=== PATIENT | male | born 1980 | race Caucasian/White ===

== ENCOUNTER 2024-03-03 10:29 | Inpatient (IN) ==
--- NOTE | 2024-03-03 10:38 | Emergency Department Note ---
History of Present Illness General Chief complaint: Abdominal Pain Stated complaint: ABD CT, REF BY DOC Time Seen by Provider: 03/03/24 10:37 History of Present Illness Maximum Pain Intensity: 8 This is a 43-year-old male that presents to the emergency department via private vehicle with complaints of "left lower quadrant abdominal pain, acute diverticulitis". The patient notes that yesterday he began with abdominal pain and blood in the stool. He has a history of ulcerative colitis as well as diverticulitis. He notes a "cramping" like sensation in the left lower quadrant. Current pain 04/15. He denies any nausea, vomiting. He does note he had a visit earlier today with his PCP where a CT scan was performed and he was diagnosed with acute sigmoid diverticulitis. Noting his severity of pain and comorbidities, he was referred here. Patient denies any known drug allergies. He is not currently on antibiotics. He has had about 4 flares of acute diverticulitis over the past year and a half per patient. Home Medications Medication Instructions Recorded Confirmed Type mesalamine 1.2 gram tablet,delayed 2.4 g PO HS 08/04/18 03/03/24 History release albuterol sulfate 90 mcg/actuation 2 puff inhalation QID PRN 10/04/18 03/03/24 History aerosol inhaler (ProAir HFA) Shortness Of Breath ascorbic acid (vitamin C) 500 mg 500 mg PO DAILY Cold Symptoms 10/04/18 03/03/24 History tablet (Vitamin C) dicyclomine 20 mg tablet 20 mg PO TID PRN Abdominal Pain 10/04/18 03/03/24 History mesalamine 1,000 mg rectal 1 g MD HS PRN Pain 10/04/18 03/03/24 History suppository omeprazole 20 mg tablet,delayed 20 mg PO DAILY Acid Reflux 10/04/18 03/03/24 History release ciprofloxacin HCl 500 mg tablet 0 mg PO BID 03/03/24 03/03/24 History metronidazole 500 mg tablet 0 mg PO TID 03/03/24 03/03/24 History Allergies Allergy/AdvReac Type Severity Reaction Status Date / Time No Known Allergies Verified 03/03/24 12:15 Past Med/Surg History Problem List (Updated 03/03/24 @ 16:56 by Julito Méndez PA-C) Abdominal pain, acute, left lower quadrant (Acute) Diverticulitis (Acute) Encounter for pre-operative examination Ulcerative colitis (Acute) Medical History (Updated 03/03/24 @ 16:56 by Julito Méndez PA-C) GERD (gastroesophageal reflux disease) Asthma allergy induced, inhaler prn Surgical History History of arthroscopy of left knee Hx of vasectomy History of colonoscopy History of tooth extraction Family History Other No family history of adverse response to anesthesia Social History Smoking Status: Never smoker Tobacco Type: Cigars Second Hand Exposure: Yes (parents smoked); Do You Dip or Chew Tobacco: No; Hx Alcohol Use: Yes Alcohol type: beer Hx Substance Use: No Preferred Language: Turkmen Communication Ability: Effective Installation Service Representative Required: No Beliefs That Will Affect Care: None Current Living Situation: Spouse Current Living Situation Comment: Lives with and 2 kids Feels Safe at Home: Yes Assistive Devices: None Review of Systems A total of 10 systems reviewed and were otherwise negative Physical Exam Vital Signs Vital Signs - 24 hr 03/03/24 10:35 03/03/24 13:45 03/03/24 13:46 Temperature 36.8 C Temperature Source Oral Pulse Rate 88 76 80 Respiratory Rate 20 18 Respiratory Effort / Characteristics Non-Labored Spontaneous Respiratory Depth Normal Blood Pressure 149/103 H 134/92 Blood Pressure Mean 118 106 Pulse Oximetry 98 97 Oxygen Delivery Method Room Air Sepsis Recent Fever Within 48 Hours No Sepsis New/Unexplained Change in Mental Status N/A Sepsis Action Taken by Nursing No Action Required VITAL SIGNS - Vital signs and nursing notes were reviewed. Stable and afebrile. GENERAL -43-year-old male appearing his stated age who is in no acute distress. Communicates well with provider and answers questions appropriately. SKIN - Without rashes. No meningeal or petechial rash. HEAD - NC/AT. EYES - Sclera anicteric. MOUTH/OROPHARYNX - Without perioral cyanosis. NECK - Neck with FROM. No nuchal rigidity. LUNGS - Chest wall symmetric without accessory muscle use, intercostals retractions, or central cyanosis. Normal vesicular breath sounds CTA B/L. No wheezes, rales, or rhonchi appreciated. CARDIAC - RRR ABDOMEN - Abdominal contour normal without pulsations or visible masses. BS normoactive all four quadrants. Left lower quadrant abdominal tenderness to palpation. EXTREMITIES - +5/5 strength noted in UE/LE bilaterally. PSYCH -alert, oriented and pleasant on exam. Pt is very pleasant and interacts well with examiner. Course Administered Medications Sodium Chloride (Nss) 1,000 mls @ 125 mls/hr IV .Q8H COLLEEN Stop: 03/03/24 23:14 Last Admin: 03/03/24 16:25 Dose: 125 mls/hr Documented By: TIFFANIE Piperacillin Sod/Tazobactam (Sod 4.5 gm/ Dextrose) 100 mls @ 25 mls/hr IV Q8H [facility]; Protocol Stop: 03/13/24 16:14 Last Admin: 03/03/24 16:25 Dose: 25 mls/hr Documented By: TIFFANIE Discontinued Medications Sodium Chloride (Nss) 1,000 mls @ 999 mls/hr IV .Q1H1M COLLEEN Stop: 03/03/24 12:15 Last Infusion: 03/03/24 12:24 Dose: Infused Documented By: Admin: 03/03/24 11:07 Dose: 999 mls/hr Documented By: ANASTASIA Piperacillin Sod/Tazobactam Sod (Zosyn) 4.5 gm in 100 mls @ 200 mls/hr IV NOW ONE Stop: 03/03/24 11:51 Last Infusion: 03/03/24 12:24 Dose: Infused Documented By: Admin: 03/03/24 11:29 Dose: 200 mls/hr Documented By: ANASTASIA Morphine Sulfate (Morphine Sulfate 4 Mg/Ml 1 Ml Carp\\Vial) 4 mg IV NOW STA Stop: 03/03/24 11:02 Last Admin: 03/03/24 11:07 Dose: 4 mg Documented By: ANASTASIA Morphine Sulfate (Morphine Sulfate 4 Mg/Ml 1 Ml Carp\\Vial) 4 mg IV NOW STA Stop: 03/03/24 13:46 Last Admin: 03/03/24 13:51 Dose: 4 mg Documented By: ANASTASIA Ondansetron HCl (Ondansetron Inj 2 Mg/Ml 2 Ml Vial) 4 mg IV NOW STA Stop: 03/03/24 11:02 Last Admin: 03/03/24 11:07 Dose: 4 mg Documented By: ANASTASIA Medical Decision Making Laboratory Data 03/03/24 10:47 03/03/24 10:47 Lab Results 03/03/24 03/03/24 Range/Units 10:47 11:09 WBC 9.82 (4.8-10.8) K/ul RBC 5.35 (4.70-6.10) M/uL Hgb 16.1 (14.0-18.0) g/dl Hct 44.8 (42.0-52.0) % MCV 83.7 (80.0-100.0) fL MCH 30.1 (25.0-34.0) pg MCHC 35.9 (32.0-36.0) g/dL RDW Std Deviation 35.5 L (36.4-46.3) fL RDW Coeff of Yusuf 11.8 (11.5-14.5) % Plt Count 196 (130-400) K/uL MPV 10.2 (9.4-12.4) fL Immature Gran % (Auto) 0.2 % Neut % (Auto) 84.4 % Lymph % (Auto) 8.1 % Whitfield % (Auto) 6.8 % Eos % (Auto) 0.2 % Baso % (Auto) 0.3 % Neut # (Auto) 8.28 H (1.40-6.50) K/uL Lymph # (Auto) 0.80 L (1.20-3.40) K/uL Whitfield # (Auto) 0.67 H (0.11-0.59) K/uL Eos # (Auto) 0.02 (0.00-0.50) K/uL Baso # (Auto) 0.03 (0.00-0.20) K/uL Immature Gran # (Auto) 0.02 (0.01-0.20) K/uL Sodium 135 L (136-145) mmol/L Potassium 4.2 (3.5-5.1) mmol/L Chloride 101 (98-107) mmol/L Carbon Dioxide 26 (21-32) mmol/L Anion Gap 8 (3-11) BUN 14 (6-23) mg/dl Creatinine 1.31 (0.6-1.4) mg/dl Est Cr Clr Drug Dosing 87.7 ml/min Est GFR ( Amer) 76.7 ml/min Est GFR (Non-Af Amer) 66.2 ml/min BUN/Creatinine Ratio 10.7 (10-20) Glucose 119 H (70-99(Fasting)) mg/dl Calcium 9.8 (8.6-10.3) mg/dl Total Bilirubin 1.7 H (0.2-1.0) mg/dl AST 33 (13-39) U/L ALT 50 (7-52) U/L Alkaline Phosphatase 64 (34-104) U/L Total Protein 8.3 (6.0-8.3) gm/dl Albumin 4.8 (3.4-5.0) gm/dl Globulin 3.5 (2.5-4.0) gm/dl Albumin/Globulin Ratio 1.4 (0.9-2) Urine Color Yellow Urine Appearance Clear (Clear) Urine pH 5.5 (4.5-7.5) Ur Specific [place] > 1.045 H (1.000-1.030) Urine Protein Negative (Negative) Urine Glucose (UA) Negative (Negative) Urine Ketones Negative (Negative) Urine Blood Negative (Negative) Urine Nitrite Negative (Negative) Urine Bilirubin Negative (Negative) Urine Urobilinogen Negative (Negative) Ur Leukocyte Esterase Negative (Negative) MDM Narrative Patient was seen and evaluated as above in room A04. Review was performed of triage nursing notes and vital signs. I did review the outpatient record to include CT scan and PCP visit from today. After obtaining a thorough history and physical examination the above work up was performed. Patient presents to us today for evaluation of left lower quadrant abdominal pain with recent diagnosis of diverticulitis. Options of care were discussed with the patient. IV access was established. Labs were drawn. No leukocytosis or concerning anemia. Mild hyponatremia 135. Mild hyperglycemia 119. T. bili 1.7. The outpatient CT does show acute sigmoid diverticulitis per radiologist. There specifically is comment that there is "no ascites, abscess, or pneumoperitoneum" per radiologist. IV analgesia, IV fluids ordered. IV antibiotics also ordered. Stool studies pending. With the patient's comorbidity of ulcerative colitis with blood in the stool in the setting of acute diverticulitis with recent treatment for diverticulitis being about 3 months ago inpatient management considered. I reviewed this with the patient and through shared decision making we will proceed with inpatient management. Case discussed with hospitalist service. Please refer to further documentation regarding his stay. GCS: 15 In the evaluation and treatment of this patient the following differential diagnoses were entertained: Diverticulitis, perforation, GI bleed, ulcerative colitis, C. difficile colitis, gastroenteritis, among others. Impression & Plan Diverticulitis, Ulcerative colitis, Abdominal pain, acute, left lower quadrant Discharge Plan Visit Data Chief Complaint: Abdominal Pain Stated Complaint: ABD CT, REF BY DOC ED Provider: Jie Weinstein ED Midlevel Provider: Julito Méndez Discharge Problem: Diverticulitis, Ulcerative colitis, Abdominal pain, acute, left lower quadrant Patient Disposition: Admitted As Inpatient Condition: Good Discharge Instructions Interventions: ED Discharge Assessment Last Done: 03/03/24 14:39
[2024-03-03] MEDS: MoRPHine SULFATE 4 MG/ML 1 ML CARP\\VIAL IV STA ×2 (11:07→13:51)
[2024-03-03] MEDS: SODIUM CHLORIDE 0.9% 1,000 ML IV SCH ×2 (11:07→16:25)
[2024-03-03] MEDS: ONDANSETRON INJ 2 MG/ML 2 ML VIAL IV STA (11:07)
[2024-03-03 11:21] LABS: Basophils # (auto) 0.03 K/uL (0.00-0.20); Basophils % (auto) 0.3 %; Eosinophils # (auto) 0.02 K/uL (0.00-0.50); Eosinophils % (auto) 0.2 %; Hematocrit (blood only) 44.8 % (42.0-52.0); Hemoglobin 16.1 g/dl (14.0-18.0); Immature Granulocytes # (auto) 0.02 K/uL (0.01-0.20); Immature Granulocytes % (auto) 0.2 %; Lymphocytes % (auto) 8.1 %; Mean Corpuscular Hemoglobin 30.1 pg (25.0-34.0); Mean Corpuscular Hgb Conc 35.9 g/dL (32.0-36.0); Mean Corpuscular Volume 83.7 fL (80.0-100.0); Mean Platelet Volume 10.2 fL (9.4-12.4); Monocytes # (auto) 0.67 K/uL (0.11-0.59); Monocytes % (auto) 6.8 %; Neutrophils # (auto) 8.28 K/uL (1.40-6.50); Neutrophils % (auto) 84.4 %; Platelet Count 196 K/uL (130-400); RDW Coefficient of Variation 11.8 % (11.5-14.5); RDW Standard Deviation 35.5 fL (36.4-46.3); Red Blood Count 5.35 M/uL (4.70-6.10); White Blood Count 9.82 K/ul (4.8-10.8)
[2024-03-03] MEDS: PIPERACILLIN/TAZOBACTAM 4.5 GM/100 ML BAG IV ONE (11:29)
[2024-03-03 11:39] LABS: Albumin Globulin Ratio 1.4 (0.9-2); Albumin Level 4.8 gm/dl (3.4-5.0); BUN Creatinine Ratio 10.7 (10-20); Bilirubin,Total 1.7 mg/dl (0.2-1.0); Calcium 9.8 mg/dl (8.6-10.3); Creatinine Clr Calc Pharmacy 87.7 ml/min; Est GFR (African American) 76.7 ml/min; Est GFR (Non-African American) 66.2 ml/min; Globulin 3.5 gm/dl (2.5-4.0); Potassium 4.2 mmol/L (3.5-5.1); Total Protein 8.3 gm/dl (6.0-8.3)
[2024-03-03 11:51] LABS: Appearance Urine Clear (Clear); Bilirubin Urine Negative (Negative); Blood Urine Negative (Negative); Color Urine Yellow; Glucose Urine UA Negative (Negative); Ketones Urine Negative (Negative); Leukocyte Esterase Urine Negative (Negative); Nitrite Urine Negative (Negative); Protein Urine Negative (Negative); Specific Gravity Urine > 1.045 (1.000-1.030); Urobilinogen Urine Negative (Negative); pH Urine 5.5 (4.5-7.5)
--- NOTE | 2024-03-03 13:43 | History & Physical Report ---
Date of Service March 03, 2024 Assessment & Plan (1) Diverticulitis: (2) Abdominal pain, acute, left lower quadrant: Plan: Patient is 43 year old male with PMH ulcerative colitis, diverticulosis and diverticulitis, asthma, GERD c/o left lower quadrant pain x 1 day. Patient states yesterday started with cramping and sharp left lower quadrant pain that is nonradiating, one episode red bloody stool in past 24 hours. 03/03/[address] abdomen pelvis with IV and oral contrast with impression of "Acute sigmoid diverticulitis, no intra-abdominal or intrapelvic lymphadenopathy, no ascites, abscess or pneumoperitoneum noted". In ER afebrile, vitals stable. No leukocytosis In ER given 1L NSS, Zosyn, Zofran, morphine Stool culture and c-diff pending Clear liquid diet Continue Zosyn Tylenol, Toradol, Morphine prn pain IVF CBC, BMP in am (3) Ulcerative colitis: Plan: Continue mesalamine Does not appear to be UC flare at this time. Monitor closely. If recurrent hematochezia or worsening consider GI consult (4) Asthma: Plan: No signs exacerbation Continue prn albuterol (5) GERD (gastroesophageal reflux disease): Plan: Continue PPI DVT Prophylaxis Ambulate admit med/surg Full Code as per discussion with pt Follows with Luis for routine care Pt was seen and care coordinated with Dr Jenkins. See addendum I spent a total of 75 minutes reviewing notes, outpatient records, labs, medication, coordinating, documenting and providing care for this patient excluding time spent in the performance of separately billed services. History of Present Illness Chief Complaint: Abdominal pain Primary Care Provider: Benton Rivas MD Patient is 43 year old male with PMH ulcerative colitis, diverticulosis and diverticulitis, asthma, GERD c/o left lower quadrant pain x 1 day. Patient states yesterday started with cramping and sharp left lower quadrant pain that is nonradiating. He reports stools have been loose. He reports has had approximately 10 BMs however have been very small in volume. He reports a lot of flatus. He states 1 time he noted red bloody stool. Had BM in ER today and didn't notice hematochezia. Denies nausea. He reports 3 episodes diverticulitis in the past year treated with oral Cipro and Flagyl that has not required hospitalization. He states he has Cipro and Flagyl to start at any sign of abdominal pain. He started taking Cipro and Flagyl yesterday. Today seen at PCPs office and PCPs note reviewed. Today, 03/03/[address] abdomen pelvis with IV and oral contrast with impression of "Acute sigmoid diverticulitis, no intra-abdominal or intrapelvic lymphadenopathy, no ascites, abscess or pneumoperitoneum noted". He was referred to ER today for further evaluation. Previously seen by [facility] surgery, Dr Cancino on 10/06/2023 for history recurrent episodes of uncomplicated diverticulitis. Note reviewed and had recommended if recurrent symptoms recommend CT abd/pelvis to try to differentiate between diverticulitis and UC flare. Follows with [facility] and is on mesalamine for ulcerative colitis. Denies fever/chills, diaphoresis, vomiting, WYATT, dizziness, CP, SOB, palpitations, cough, rhinorrhea, extremity weakness, extremity edema, rashes, urinary symptoms. Allergies Allergy/AdvReac Type Severity Reaction Status Date / Time No Known Allergies Verified 03/03/24 12:15 Home Medications Medication Instructions Recorded Confirmed Type mesalamine 1.2 gram tablet,delayed 2.4 g PO HS 08/04/18 03/03/24 History release albuterol sulfate 90 mcg/actuation 2 puff inhalation QID PRN 10/04/18 03/03/24 History aerosol inhaler (ProAir HFA) Shortness Of Breath ascorbic acid (vitamin C) 500 mg 500 mg PO DAILY Cold Symptoms 10/04/18 03/03/24 History tablet (Vitamin C) dicyclomine 20 mg tablet 20 mg PO TID PRN Abdominal Pain 10/04/18 03/03/24 History mesalamine 1,000 mg rectal 1 g FL HS PRN Pain 10/04/18 03/03/24 History suppository omeprazole 20 mg tablet,delayed 20 mg PO DAILY Acid Reflux 10/04/18 03/03/24 History release ciprofloxacin HCl 500 mg tablet 0 mg PO BID 03/03/24 03/03/24 History metronidazole 500 mg tablet 0 mg PO TID 03/03/24 03/03/24 History Past Med/Surg History Problem List (Updated 03/03/24 @ 18:48 by Emily Yoder PA-C) GERD (gastroesophageal reflux disease) Asthma allergy induced, inhaler prn Abdominal pain, acute, left lower quadrant (Acute) Diverticulitis (Acute) Encounter for pre-operative examination Ulcerative colitis (Acute) Surgical History History of arthroscopy of left knee Hx of vasectomy History of colonoscopy History of tooth extraction Family History Other No family history of adverse response to anesthesia Social History Smoking Status: Never smoker Tobacco Type: Cigars Second Hand Exposure: Yes (parents smoked); Do You Dip or Chew Tobacco: No; Hx Alcohol Use: Yes Alcohol type: beer Hx Substance Use: No Preferred Language: Welsh Communication Ability: Effective Hardware Installer Required: No Beliefs That Will Affect Care: None Current Living Situation: Spouse Current Living Situation Comment: Lives with and 2 kids Feels Safe at Home: Yes Assistive Devices: None Review of Systems Review of Systems: All systems reviewed & are unremarkable except as noted in HPI & below Physical Exam Physical Exam: General: no acute distress, WDWN Head: normocephalic, atraumatic Eyes: conjunctiva non-injected, anicteric ENT: normal inspection external ears, nose, mucous membranes moist Neck: supple, trachea midline Lungs: clear, no respiratory distress, no wheezing/rhonchi/rales CV: RRR, no murmur, no pretibial edema Abd: normal BS, soft, +tender to palpation LLQ without rebound Ext: no cyanosis, no calf tenderness Neuro: A&O x 3, no focal deficits noted, normal affect Skin: warm, dry Results & Data Results & Data Vital Signs (Past 12 Hours) Vital Signs Temp Pulse Resp BP Pulse Ox O2 Del Method 03/03/24 10:35 36.8 C 88 20 149/103 H 98 Room Air Laboratory Results Short CBC 03/03/24 Range/Units 10:47 WBC 9.82 (4.8-10.8) K/ul Hgb 16.1 (14.0-18.0) g/dl Hct 44.8 (42.0-52.0) % Plt Count 196 (130-400) K/uL BMP 03/03/24 10:47 Sodium 135 L Potassium 4.2 Chloride 101 Carbon Dioxide 26 BUN 14 Creatinine 1.31 Glucose 119 H Calcium 9.8 Liver Function 03/03/24 Range/Units 10:47 Total Bilirubin 1.7 H (0.2-1.0) mg/dl AST 33 (13-39) U/L ALT 50 (7-52) U/L Alkaline Phosphatase 64 (34-104) U/L Albumin 4.8 (3.4-5.0) gm/dl Urine 03/03/24 Range/Units 11:09 Urine Color Yellow Urine Appearance Clear (Clear) Urine pH 5.5 (4.5-7.5) Ur Specific [place] > 1.045 H (1.000-1.030) Urine Protein Negative (Negative) Urine Glucose (UA) Negative (Negative) Supervising Physician Co-Signing Physician Notes Patient was seen and examined independently at bedside. Chart reviewed. Case discussed with Emily MALHOTRA and agree with the documentation above. In summary, this is a 43 year old male with history of recurrent diverticulitis (4 episodes), ulcerative colitis who is being admitted for uncomplicated acute s igmoid diverticulitis. Family at bedside, pain is controlled. On exam, lying comfortably in bed, not in distress, AAO, chest clear, heart sounds normal, neurologically intact, calm, cooperative, no edema. Abdomen- soft, LLQ tender, not distended, BS +. OP CT A/P reviewed. Vitals stable, labs stable. Will continue zosyn, bowel rest, ivf, advance diet as tolerated to low fiber diet. Needs OP colonoscopy in 6 weeks. Rest as per the note above.
[2024-03-03] MEDS ORDERED: ONDANSETRON INJ 2 MG/ML 2 ML VIAL IV PRN (15:05)
[2024-03-03] MEDS ORDERED: ALBUTEROL HFA 8 GM INHALER INH PRN (15:10)
[2024-03-03] MEDS: PIPERACILLIN/TAZOBACTAM 4.5 GM in DEXTROSE 5% MINI-B 100 ML IV SCH (16:25)
[2024-03-03] MEDS: MoRPHine SULFATE 4 MG/ML 1 ML CARP\\VIAL IV PRN (18:04)
[2024-03-03] MEDS: ACETAMINOPHEN 325 MG TAB PO PRN (18:05)
--- OUTSIDE RECORDS SUMMARY | 2024-03-03 18:24 | External Medical Summary | Summary of Care ---
Author Name Unknown Organization [facility] Address [address] [place] [address] Phone [phone] Care Team Providers Care Programs Director Name Role Phone Benton Rivas MD Primary Care Provider [phone] Reason for Visit * Reason Comments Outpatient Testing Encounter Details Date Type Department Care Team (Late st Contact Info) Description 10/22/2023 11:40 AM EST Laboratory Laboratory, [facility] [address] [place] [address] [facility] [address] [place] [address] Arrived Allergies No known active allergiesdocumented as of this encounter (statuses as of 10/22/2023) Medications Medication Sig Dispensed Refills Start Date End Date Status albuterol (PROAIR HFA) 108 (90 BASE) MCG/ACT inhalerIndications :Cough variant asthma Inhale 2 Puffs by mouth 4 times a day. 1 Inhaler 1 10/22/2017 Active Additional Information Patient taking differently:2 Puff Inhalation QID(AM/NOON/PM/HS),prn, Reported on 09/21/2022 Mesalamine 1.2 GM Oral Tablet Delayed Release (Lialda) Take 2 Tablets by mouth in the morning. 180 Tablet 3 10/22/2023 Active Omeprazole 20 MG Oral Capsule Delayed Release (PriLOSEC) Take 1 capsule by mouth twice daily 1 hour prior to morning and evening meals. 180 Capsule 3 10/22/2023 Active documented as of this encounter (statuses as of 10/22/2023) Active Problems Problem Noted Date Diagnosed Date Diverticulosis of large intestine without hemorr tyler 10/06/2023 Eosinophilic esophagitis 10/06/2023 Overweight (BMI 25.0-29.9) 10/06/2023 Ulcerative proctitis documented as of this encounter (statuses as of 10/22/2023) Resolved Problems Problem Noted Date Diagnosed Date Resolved Date NO KNOWN PROBLEMS 02/20/2010 10/06/2023 documented as of this encounter (statuses as of 10/22/2023) Immunizations Name Administration Dates Next Due Seasonal Influenza, PF, 6 M & above, IM , (FluLaval or Fluzone) 06/23/2019,10/22/2017 Seasonal Influenza, Quadrivalent, No Preserve, I M 06/21/2015 documented as of this encounter Social History Tobacco Use Types Packs/Day Years Used Date Smoking Tobacco: Never Smokeless Tobacco: Never Alcohol Use Standard Drinks/Week Comments Yes 0 (1 standard drink = 0.6 oz pur e alcohol) occasional PHQ-2 Answer Date Recorded PHQ-2 Score 0 09/09/2018 Sex and Gender Information Value Date Recorded Sex Assigned at Not on file Gender Identity Not on file Sexual Orientation Not on file Job Start Date Occupation Industry Not on file Not on file Not on file documented as of this encounter Plan of Treatment Upcoming Encounters Date Type Department Care Team (Late st Contact Info) Description 10/27/2024 10:20 AM EST Office Visit Family [facility] [address] [place] [id number] Benton Rivas MD [address] [place] [id number] Scheduled Procedures Name Priority Associated Diagnoses Date/Ti me COLONOSCOPY FLEXIBLE PROXIMA L DIAGNOSTIC Recall Chronic ulcerative proctitis (HCC) Health Maintenance Due Date Last Done Comments Lipid Panel 1980 HIV Screening 1995 Hepatitis C Screening 1998 DTaP,Tdap,and Td Vaccines (1 - Tdap) 1999 Hepatitis B (1 of 3 - 19+ 3-dose series) 1999 Depression Screening 09/09/2019 09/09/2018 COVID-19 Vaccine ( - 2022-24 season) 2023 Influenza Vaccine (FLU shot) (#1) 2023 06/23/2019, 10/22/2017, 06/21/2015 Diabetes Screening 01/23/2025 01/23/2022, 0 05/09/2021, 08/04/2018, Additional history exists COLONOSCOPY-EVERY 3 YRS AGES 18-100 09/21/2025 09/21/2022, 09/21/2022, 10/05/2018, Additional history exists GARDASIL-HPV IMMUNIZATION SERIES Aged Out No longer eligible based on patient's age to complete this topic MENINGOCOCCAL (MENACTRA/MENVEO) Aged Out No longer eligible based on patient's age to complete this topic Pneumococcal Vaccine: Pediatrics (0 to 5 Years) and At-Risk Patients (6 to 64 Years) Aged Out No longer eligible based on patient's age to complete this topic documented as of this encounter Medical Devices Not on filedocumented as of this encounter Care Teams Programs Director Relationship Specialty Start Date End Date Benton Rivas MD [address] [place] [address] PCP - General Family Medicine 08/16/23 documented as of this encounter
--- OUTSIDE RECORDS SUMMARY | 2024-03-03 18:24 | External Medical Summary | Summary of Care ---
Author Name Unknown Organization [facility] Address [address] [facility] [address] Phone [phone] Care Team Providers Care Gas Turbine Powerplant Mechanic Name Role Phone Benton Rivas MD Primary Care Provider [phone] Reason for Visit * Reason Comments Follow Up Pt here for follow u p and to establish with new PCP Encounter Details Date Type Department Care Team (Late st Contact Info) Description 10/22/2023 10:40 AM EST Office Visit Family Practice [facility] [address] [facility] [place] [address] Benton Rivas MD [address] [facility] [place] [address] Routine general medical examination at a health care facility*; Ulcerative proctitis without complication (HCC); Eosinophilic esophagitis; Diverticulosis of large intestine without hemorrhage; Overweight (BMI 25.0-29.9) Allergies No known active allergiesdocumented as of this encounter (statuses as of 10/23/2023) Medications Medication Sig Dispensed Refills Start Date End Date Status albuterol (PROAIR HFA) 108 (90 BASE) MCG/ACT inhalerIndicati ons:Cough variant asthma Inhale 2 Puffs by mouth 4 times a day. 1 Inhaler 1 8 Active Additional Information Patient taking differently:2 Puff Inhalation QID(AM/NOON/PM/HS),prn, Reported on 09/21/2022 Mesalamine 1.2 GM Oral Tablet Delayed Release (Lialda) Take 2 Tablets by mouth in the morning. 180 Tablet 3 4 Active Omeprazole 20 MG Oral Capsule Delayed Release (PriLOSEC) Take 1 capsule by mouth twice daily 1 hour prior to morning and evening meals. 180 Capsule 3 4 Active Ciprofloxacin HCl 500 MG Oral Tablet (Cipro) Take 1 Tablet by mouth in the morning and 1 Tablet before bedtime. Do all this for 10 days. 20 Tablet 0 4 11/02/19 24 Active metroNIDAZOLE 500 MG Oral Tablet (Flagyl) Take 1 Tablet by mouth in the morning and 1 Tablet at noon and 1 Tablet before bedtime. Do all this for 10 days. until gone.. 30 Tablet 0 4 11/02/19 24 Active Vitamin B-12 1000 MCG Sublingual Tablet SublingualIndic ations:Vitamin B12 deficiency Place under the tongue 1 Tablet in the morning. 90 Tablet 3 2 10/22/19 24 Discontinued Omeprazole 20 MG Oral Capsule Delayed Release (PriLOSEC) Take 1 capsule by mouth twice daily 1 hour prior to morning and evening meals. 180 Capsule 3 3 10/22/19 24 Discontinued(Ref ill) Mesalamine 1.2 GM Oral Tablet Delayed Release (Lialda) Take 2 Tablets by mouth in the morning. 180 Tablet 3 3 10/22/19 24 Discontinued(Ref ill) metroNIDAZOLE 500 MG Oral Tablet (Flagyl) Take 1 Tablet by mouth in the morning and 1 Tablet at noon and 1 Tablet before bedtime. 21 Tablet 0 3 10/22/19 24 Discontinued Ciprofloxacin HCl 500 MG Oral Tablet (Cipro) Take 1 Tablet by mouth in the morning and 1 Tablet before bedtime. 14 Tablet 0 3 10/22/19 24 Discontinued documented as of this encounter (statuses as of 10/23/2023) Active Problems Problem Noted Date Diagnosed Date Diverticulosis of large intestine without hemorr tyler 10/06/2023 Eosinophilic esophagitis 10/06/2023 Overweight (BMI 25.0-29.9) 10/06/2023 Ulcerative proctitis documented as of this encounter (statuses as of 10/23/2023) Resolved Problems Problem Noted Date Diagnosed Date Resolved Date NO KNOWN PROBLEMS 02/20/2010 10/06/2023 documented as of this encounter (statuses as of 10/23/2023) Immunizations Name Administration Dates Next Due Seasonal [...] on file documented as of this encounter Last Filed Vital Signs Vital Sign Reading Time Taken Comments Blood Pressure 130/84 10/22/2023 10:55 AM EST Pulse 80 10/22/2023 10:55 AM EST Temperature 36.6 C (97.8 F) 10/22/2023 10:[address] Respiratory Rate 18 10/22/2023 10:55 AM EST Oxygen Saturation - - Inhaled Oxygen Concentration - - Weight 100.7 kg (222 lb) 10/22/2023 10:55 AM EST Height 185.4 cm (6' 1") 10/22/2023 10:55 AM EST Body Mass Index 29.29 10/22/2023 10:55 AM EST documented in this encounter Progress Notes * Benton Rivas MD - 10/23/2023 8:45 AM EST SUBJECTIVE: Titi Mata is a 43 year old male. Chief Complaint Patient presents with Follow Up Pt here for follow up and to establish with new PCP HPI: Will is a very pleasant 43 year old male here for a routine visit. He feels generally well. He follows with the specialists for his ulcerative proctitis and diverticulosis. No recent flares. Health maintenance reviewed. Patient Active Problem List Diagnosis Code Ulcerative proctitis (HCC) K51.20 Diverticulosis of large intestine without hemorrhage K57.30 Eosinophilic esophagitis K20.0 Overweight (BMI 25.0-29.9) E66.3 Current Outpatient Medications Medication Sig Dispense Refill albuterol (PROAIR HFA) 108 (90 BASE) MCG/ACT inhaler Inhale 2 Puffs by mouth 4 times a day. (Patient taking differently: Inhale 2 Puffs by mouth in the morning and 2 Puffs at noon and 2 Puffs in the evening and 2 Puffs before bedtime. prn.) 1 Inhaler 1 Mesalamine 1.2 GM Oral Tablet Delayed Release (Lialda) Take 2 Tablets by mouth in the morning. 180 Tablet 3 Omeprazole 20 MG Oral Capsule Delayed Release (PriLOSEC) Take 1 capsule by mouth twice daily 1 hourprior to morning and evening meals. 180 Capsule 3 Ciprofloxacin HCl 500 MG Oral Tablet (Cipro) Take 1 Tablet by mouth in the morning and 1 Tablet before bedtime. Do all this for 10 days. 20 Tablet 0 metroNIDAZOLE 500 MG Oral Tablet (Flagyl) Take 1 Tablet by mouth in the morning and 1 Tablet at noon and 1 Tablet before bedtime. Do all this for 10 days. until gone.. 30 Tablet 0 No current facility-administered medications for this visit. Allergy: Review of patient's allergies indicates: No Known Allergies OBJECTIVE: BP 130/84 | Pulse 80 | Temp 36.6 C (97.8 F) (Tympanic) | Resp 18 | Ht 1.854 m (6' 1") | Wt 100.7 kg (222 lb) | BMI 29.29 kg/m | BSA 2.28 m General: alert, healthy, and no distress Head: Normocephalic, No masses, lesions, tenderness or abnormalities Neck: supple, no adenopathy, no bruits, thyroid normal size, non-tender, without nodularity Lungs: chest symmetric with normal AP diameter, no chest deformities noted, no chest wall tenderness, lungs clear to auscultation Heart: regular rate & rhythm, no murmur, and no gallops Extremities: less than 2 second capillary refill, no joint deformities, effusion, or inflammation Skin: skin color, texture, turgor are normal, no rashes or significant lesions ASSESSMENT AND PLAN: (Z00.00) Routine general medical examination at a health care facility (primary encounter diagnosis) Plan: age appropriate anticipatory guidance given (K51.20) Ulcerative proctitis without complication (HCC) Plan: stable (K20.0) Eosinophilic esophagitis Plan: stable (K57.30) Diverticulosis of large intestine without hemorrhage Plan: quiescent (E66.3) Overweight (BMI 25.0-29.9) Plan: diet/exercise Follow up as needed. No other complaints were offered at this time. Benton Rivas MD documented in this encounter Nursing Notes * Grazyna Sultana LPN - 10/22/2023 10:55 AM EST The patient has been properly identified by confirmation of name and date of . Chief Complaint Patient presents with Follow Up Pt here for follow up and to establish with new PCP documented in this encounter Plan of Treatment Upcoming Encounters Date Type Department Care Team (Late st Contact Info) Description 10/27/2024 10:20 AM EST Office Visit [facility] [address] [facility] [place] [address] Benton Rivas MD [address] [place] [address] Scheduled Procedures Name Priority Associated Diagnoses Date/Ti me COLONOSCOPY FLEXIBLE PROXIMA L DIAGNOSTIC Recall Chronic ulcerative proctitis (HCC) Health Maintenance Due Date Last Done Comments HIV Screening 1995 Hepatitis C Screening 1998 DTaP,Tdap,and Td Vaccines (1 - Tdap) 1999 Hepatitis B (1 of 3 - 19+ 3-dose series) 1999 Depression Screening 09/09/2019 09/09/2018 COVID-19 Vaccine (1 - 2022-24 season) 2023 Influenza Vaccine (FLU shot) (#1) 2023 06/23/2019, 10/22/2017, 06/21/2015 COLONOSCOPY-EVERY 3 YRS AGES 18-100 09/21/2025 09/21/2022, 09/21/2022, 10/05/2018, Additional history exists Diabetes Screening 10/22/2026 10/22/2023, 0 01/23/2022, 05/09/2021, Additional history exists Lipid Panel 10/22/2028 10/22/2023 GARDASIL-HPV IMMUNIZATION SERIES Aged Out No longer [...] Not on filedocumented as of this encounter Visit Diagnoses Diagnosis Routine general medical examination at a health care facility- Primary Ulcerative proctitis without complication (HCC) Eosinophilic esophagitis Diverticulosis of large intestine without hemorrhage Overweight (BMI 25.0-29.9) Overweight documented in this encounter Care Teams Gas Turbine Powerplant Mechanic Relationship Specialty Start Date End Date Benton Rivas MD [address] [facility] [place] [address] PCP - General Family Medicine 08/16/23 documented as of this encounter
--- OUTSIDE RECORDS SUMMARY | 2024-03-03 18:24 | External Medical Summary ---
Author Name Unknown Address Unknown Organization K0G:[facility] [place] [address] Laboratory Report Ordering Provider Test Date Status GABRIEL ROSENBERG 10/22/2023 11:15:56 Final Observation Date Value Abnormality Reference (Units ) Status BUN 10/22/2023 11:15:56 19 6-20 (mg/dL) Final Creatinine 10/22/2023 11:15:56 1.2 0.6-1.2 (mg/dL) Final Glomerular filtration rate/1.73 sq M.predicted [Volume Rate/Area] in Serum, Plasma or Blood by Creatinine-based formula (CKD-EPI) 10/22/2023 11:15:56 81 >=60 (mL/min) Final eGFR is calculated based on the CKD-EPI 2020 equation SODIUM 10/22/2023 11:15:56 138 135-146 (m mol/L) Final Potassium 10/22/2023 11:15:56 4.7 3.5-5.1 (m mol/L) Final Cl 10/22/2023 11:15:56 101 98-107 (mm ol/L) Final CO2 10/22/2023 11:15:56 24 22-32 (mmo l/L) Final Anion gap 10/22/2023 11:15:56 13 7-15 (mmol /L) Final Glucose 10/22/2023 11:15:56 99 70-120 (mg /dL) Final Albumin 10/22/2023 11:15:56 4.9 3.8-5.0 (g /dL) Final AST (Aspartate aminotransferase) 10/22/2023 11:15:56 28 10-50 (U/L) Fin al Alk Phos 10/22/2023 11:15:56 63 35-130 (U/ L) Final Bilirubin, Total 10/22/2023 11:15:56 0.6 <=1 .2 (mg/dL) Final Calcium 10/22/2023 11:15:56 9.3 8.4-10.2 ( mg/dL) Final Protein 10/22/2023 11:15:56 7.3 6.0-8.3 (g /dL) Final ALT (Alanine aminotransferase) 10/22/2023 11:15:56 54 Above high normal 10-50 (U/L) Final Performing Location [facility] [place] [facility] [address]
--- OUTSIDE RECORDS SUMMARY | 2024-03-03 18:24 | External Medical Summary ---
Author Name Unknown Address Unknown Organization K01:[facility] - [address] [facility] [place] [address] Laboratory Report Ordering Provider Test Date Status GABRIEL ROSENBERG 10/22/2023 11:15:56 Final Observation Date Value Abnormality Reference (Units ) Status Triglyceride 10/22/2023 11:15:56 224 Above high normal <=174 (mg/dL) Final Triglyceride Reference Range s (mg/dL):
<150 Acceptable
150-174 Borderline high
175-499 High
>=500 Very high Cholesterol 10/22/2023 11:15:56 248 Above high normal <200 (mg/dL) Final Total Cholesterol Reference Ranges (mg/dL):
<200 Desirable
200-239 Borderline high
>=240 High HDL 10/22/2023 11:15:56 76 >39 (mg/dL ) Final HDL Cholesterol Reference Ra nges (mg/dL):
>=60 High (Desirable)
<50 Low (Undesirable) For Females
<40 Low (Undesirable) For Males NON-HDL CHOLESTEROL 10/22/2023 11:15:56 172 Above high normal <=159 (mg/dL) Final Non-HDL Cholesterol Referenc e Range (mg/dL):
<100 Target level for high risk ASCVD patient
<130 Optimal for general population
130-159 Near optimal for general population
160-189 Borderline High
190-219 High
>=220 Very High LDL, (calculated) 10/22/2023 11:15:56 127 <= 129 (mg/dL) Final LDL Cholesterol Reference Ra nges (mg/dL):
<70 Target level for high risk ASCVD patient
<100 Optimal for general population
100-129 Near optimal for general population
130-159 Borderline high
160-189 High
>=190 Very high Performing Location [facility] - [address] [facility] [address]
--- OUTSIDE RECORDS SUMMARY | 2024-03-03 18:24 | External Medical Summary | Summary of Care ---
Author Name Unknown Organization [facility] Address [address] [place] [facility] [place] [address] Phone [phone] Care Team Providers Care Leaf Sucker Operator Name Role Phone Benton Rivas MD Primary Care Provider [phone] Reason for Referral * Precert (Within 10 days (routine)) - Pending Review Specialty Diagnoses / Procedures Referred By Contac t Referred To Contact Radiology Diagnoses Diverticulitis of colon Procedures CT ABD/PELVIS W IV AND W ORAL CONTRAST Benton Rivas MD [address] [employer] [place] [address] Referral ID Status Reason Start Date Expiration Date V isits Requested Visits Authorized [id number] Pending Review 03/02/[phone] Encounter Details Date Type Department Care Team (Late st Contact Info) Description 03/02/2024 Telephone Family Practice [facility] [address] [place] [address] Benton Rivas MD [address] [place] [address] Allergies No known active allergiesdocumented as of this encounter (statuses as of 03/02/2024) Medications Medication Sig Dispensed Refills Start Date [...] as of this encounter (statuses as of 03/02/2024) Active Problems Problem Noted Date Diagnosed Date Diverticulosis of large intestine without hemorr tyler 10/06/2023 Eosinophilic esophagitis 10/06/2023 Overweight (BMI 25.0-29.9) 10/06/2023 Ulcerative proctitis documented as of this encounter (statuses as of 03/02/2024) Resolved Problems Problem Noted Date Diagnosed Date Resolved Date NO KNOWN PROBLEMS 02/20/2010 10/06/2023 documented as of this encounter (statuses as of 03/02/2024) Immunizations Name Administration Dates Next Due Seasonal [...] Answer Date Recorded PHQ-2 Score 0 09/09/2018 Utilities Answer Date Recorded Do you have trouble paying y our heating, water, or electric bill? (Adult - for ages 18 years and over) Not on file 02/22/2024 Is your family able to pay t he heat, water, or electric bill? (Household - for ages 0-17 years) Not on file 02/22/2024 Does your family have access to good internet? (Household - for ages 0-17 years) Not on file 02/22/2024 Social Connections Answer Date Recorded How often do you feel lonely or isolated from those around you? (Adult - for ages 18 years and over) Not on file 02/22/2024 Sex and Gender Information Value Date Recorded Sex Assigned at Not on file Gender Identity Not on file Sexual Orientation Not on file Job Start Date Occupation Industry Not on file Not on file Not on file documented as of this encounter Miscellaneous Notes * Telephone Encounter - Elise Bishop LPN - 03/02/2024 11:36 AM EDT Pt/ made aware * Telephone Encounter - Benton Rivas MD - 03/02/2024 11:32 AM EDT Ordered. * Telephone Encounter - Elise Bishop LPN - 03/02/2024 11:26 AM EDT Pt voices concerns for possible diverticulitis flare (Hx of UC as well)-- Sx began last night 03/02/24. Sx include abd cramps, loose stools, scant blood on paper with BM. Pt at work, unable to go to ER at this moment. Pt started cipro/flagyl today. Inquiring about CT order per Catalina Mata. documented in this encounter Plan of Treatment Upcoming Encounters Date Type Department Care Team (Late st Contact Info) Description 10/27/2024 10:20 AM EST Office Visit Family Practice [facility] [address] [place] [address] Benton Rivas MD [address] [place] [address] Scheduled Orders Name Type Priority Associated Diagnoses Orde r Schedule CT ABD/PELVIS W IV AND W ORAL CONTRAST Medical Imaging Routine Diverticulitis of colon Ordered: 03/02/2024 Scheduled Procedures Name Priority Associated Diagnoses Date/Ti [...] 2022-24 season) 2023 Influenza Vaccine (FLU shot) (Season Ended) 2024 06/23/2019, 10/22/2017, 06/21/2015 Colonoscopy 09/21/2025 09/21/2022, 09/06, 10/05/2018, Additional history exists Diabetes Screening 10/22/2026 [...] as of this encounter Visit Diagnoses Diagnosis Diverticulitis of colon- Primary Diverticulitis of colon (without mention of hemorrhage) documented in this encounter Care Teams Leaf Sucker Operator Relationship Specialty Start Date End Date Benton Rivas MD [address] [address] PCP - General Family Medicine 08/16/23 documented as of this encounter
--- OUTSIDE RECORDS SUMMARY | 2024-03-03 18:24 | External Medical Summary | Summary of Care ---
Author Name Unknown Organization [facility] Address [address] [facility] [place] [address] Phone [phone] Care Team Providers Care Photoengraving Finisher Name Role Phone Benton Rivas MD Primary Care Provider [phone] Reason for Referral * Precert (Within 10 days (routine)) - Pending Review Specialty Diagnoses / Procedures Referred By Contac t Referred To Contact Radiology Diagnoses Diverticulitis of colon Procedures CT ABD/PELVIS W IV AND W ORAL CONTRAST Benton Rivas MD [address] [place] [address] Referral ID Status Reason Start Date Expiration Date V isits Requested Visits Authorized [id number] Pending Review 03/02/[phone] Encounter Details Date Type Department Care Team (Late st Contact Info) Description 03/02/2024 Telephone Family Practice [facility] [address] [place] [address] Benton Rivas MD [address] [place] [address] Allergies No known active allergiesdocumented as of [...] 10:20 AM EST Office Visit Family Practice [facility] [address] [place] [address] Benton Rivas MD [address] [place] [address] Scheduled Orders Name Type Priority Associated Diagnoses [...] hemorrhage) documented in this encounter Care Teams Photoengraving Finisher Relationship Specialty Start Date End Date Benton Rivas MD [address] [place] [address] PCP - General Family Medicine 08/16/23 documented as of this encounter
--- OUTSIDE RECORDS SUMMARY | 2024-03-03 18:25 | External Medical Summary | Summary of Care ---
Author Name Unknown Organization [facility] Address [address] [place] [address] Phone [phone] Care Team Providers Care Account Adjuster Name Role Phone Benton Rivas MD Primary Care Provider [phone] Reason for Visit * Reason Comments Acute Knee pain Encounter Details Date Type Department Care Team (Late st Contact Info) Description 09/11/2023 10:00 AM EST Office Visit [facility] [address] [place] [address] Estiven Sarkar MD [address] [place] [address] Contusion of left thigh, subsequent encounter*; Contusion of left knee, subsequent encounter Allergies No known active allergiesdocumented as of this encounter (statuses as of 09/11/2023) Medications Medication Sig Dispensed Refills Start Date End Date Status albuterol (PROAIR HFA) 108 (90 BASE) MCG/ACT inhalerIndications :Cough variant asthma Inhale 2 Puffs by mouth 4 times a day. 1 Inhaler 1 10/22/2017 Active Additional Information Patient taking differently:2 Puff Inhalation QID(AM/NOON/PM/HS),prn, Reported on 09/21/2022 Vitamin B-12 1000 MCG Sublingual Tablet SublingualIndicati ons:Vitamin B12 deficiency Place under the tongue 1 Tablet in the morning. 90 Tablet 3 05/01/2022 Active Additional Information Patient not taking.Reported on 04/09/2023 Omeprazole 20 MG Oral Capsule Delayed Release (PriLOSEC) Take 1 capsule by mouth twice daily 1 hour prior to morning and evening meals. 180 Capsule 3 04/09/2023 Active Mesalamine 1.2 GM Oral Tablet Delayed Release (Lialda) Take 2 Tablets by mouth in the morning. 180 Tablet 3 04/09/2023 Active metroNIDAZOLE 500 MG Oral Tablet (Flagyl) Take 1 Tablet by mouth in the morning and 1 Tablet at noon and 1 Tablet before bedtime. 21 Tablet 0 08/16/2023 Active Additional Information Patient not taking.Reported on 09/11/2023 Ciprofloxacin HCl 500 MG Oral Tablet (Cipro) Take 1 Tablet by mouth in the morning and 1 Tablet before bedtime. 14 Tablet 0 08/16/2023 Active Additional Information Patient not taking.Reported on 09/11/2023 documented as of this encounter (statuses as of 09/11/2023) Active Problems Problem Noted Date Diagnosed Date NO KNOWN PROBLEMS 02/20/2010 Ulcerative proctitis documented as of this encounter (statuses as of 09/11/2023) Immunizations Name Administration Dates Next Due Seasonal Influenza, PF, 6 M & above, IM , (FluLaval or Fluzone) 06/23/2019,10/22/2017 Seasonal Influenza, Quadrivalent, No Preserve, I M 06/21/2015 documented as of this encounter Social History Tobacco Use Types Packs/Day Years Used Date Smoking Tobacco: Never Smokeless Tobacco: Never Tobacco Cessation:Counseling Given: Not Answered Alcohol Use Standard Drinks/Week Comments Yes 0 [...] Sign Reading Time Taken Comments Blood Pressure 138/86 09/11/2023 9:50 AM EST Pulse 78 09/11/2023 9:50 AM EST Temperature 36.2 C (97.2 F) 09/11/2023 9:50 AM ES T Respiratory Rate 20 09/11/2023 9:50 AM EST Oxygen Saturation 98% 09/11/2023 9:50 AM EST Inhaled Oxygen Concentration - - Weight 95.6 kg (210 lb 12.8 oz) 09/11/2023 9:50 AM EST Height 185.4 cm (6' 1") 09/11/2023 9:50 AM EST Body Mass Index 27.81 09/11/2023 9:50 AM EST documented in this encounter Progress Notes * Estiven Sarkar MD - 09/11/2023 3:18 PM EST Subjective: Titi Mata is a 43 year old male. Chief Complaint Patient presents with Acute Knee pain HPI: 43-year-old that was injured while at work on September 09, 2023. A large metal gate fell hittinghim in the left knee and thigh. After that incident he was seen in the emergency room at [facility] a [facility] outside of [place]. X-rays were done he was told thatthere were no fractures. He still has some discomfort in thought he should be evaluated again. Actually the discomfort has improved but he still had the appointment Um and did not cancel. He is ambulating okay Patient Active Problem List Diagnosis Code NO KNOWN PROBLEMS [id number] Ulcerative proctitis (HCC) K51.20 Current Outpatient Medications Medication Sig Dispense Refill albuterol (PROAIR HFA) 108 (90 BASE) MCG/ACT inhaler Inhale 2 Puffs by mouth 4 times a day. (Patient taking differently: Inhale 2 Puffs by mouth in the morning and 2 Puffs at noon and 2 Puffs in the evening and 2 Puffs before bedtime. prn.) 1 Inhaler 1 Omeprazole 20 MG Oral Capsule Delayed Release (PriLOSEC) Take 1 capsule by mouth twice daily 1 hourprior to morning and evening meals. 180 Capsule 3 Mesalamine 1.2 GM Oral Tablet Delayed Release (Lialda) Take 2 Tablets by mouth in the morning. 180 Tablet 3 Vitamin B-12 1000 MCG Sublingual Tablet Sublingual Place under the tongue 1 Tablet in the morning. (Patient not taking: Reported on 04/09/2023) 90 Tablet 3 metroNIDAZOLE 500 MG Oral Tablet (Flagyl) Take 1 Tablet by mouth in the morning and 1 Tablet at noon and 1 Tablet before bedtime. (Patient not taking: Reported on 09/11/2023) 21 Tablet 0 Ciprofloxacin HCl 500 MG Oral Tablet (Cipro) Take 1 Tablet by mouth in the morning and 1 Tablet before bedtime. (Patient not taking: Reported on 09/11/2023) 14 Tablet 0 No current facility-administered medications for this visit. Review of patient's allergies indicates: No Known Allergies Objective: BP 138/86 | Pulse 78 | Temp 36.2 C (97.2 F) (Temporal Artery) | Resp 20 | Ht 1.854 m (6' 1") | Wt 95.6 kg (210 lb 12.8 oz) | SpO2 98% | BMI 27.81 kg/m | BSA 2.22 m Physical Exam: CONST: alert, pleasant, no acute distress HEAD: normocephalic, atraumatic CV: regular rate and rhythm, no murmur CHEST: clear to auscultation bilaterally, no rales or wheezing ABD: soft, non tender, non distended, no masses or hepatosplenomegaly EXT: Left knee-there is a shallow laceration of approximately 3 cm over the anterior aspect of the knee. No signs of infection. The anterior cruciate and lateral collateral ligaments are intact Ban's sign is negative. He has not abrasion and ecchymosis in the medial distal left thigh. Mildly tender to the ASSESSMENT/PLAN: Contusion left thigh with ecchymosis-warm soaks. Consider compression sleeve or Jordon bandage. New line contusion anterior aspect left knee. Knee structure is felt to be intact. I do not think anything further knee be done at this time. He and tends to be back to work on Wednesday09/13/23. Estiven Sarkar MD documented in this encounter Nursing Notes * Rabia Joyner LPN - 09/11/2023 9:50 AM EST The patient has been properly identified by confirmation of name and date of . Chief Complaint Patient presents with Acute Knee pain Left knee pain Hurt at work on - had X-ray done at [facility] near [place] documented in this encounter Plan of Treatment Upcoming Encounters Date Type Department Care Team (Late st Contact Info) Description 10/06/2023 12:30 PM EST Office Visit General Surgery, [facility] [place] [address] Maria Esther Cancino MD [address] [place] [address] 10/22/2023 10:40 AM EST Office Visit Family Practice [facility] [address] [place] [address] Benton Rivas MD [facility] [place] [address] Scheduled Procedures Name Priority Associated Diagnoses Date/Ti me COLONOSCOPY FLEXIBLE PROXIMA L DIAGNOSTIC Recall Chronic ulcerative proctitis (HCC) Health Maintenance Due Date Last Done Comments Hepatitis B (1 of 3 - 3-dose series) 1980 Lipid Panel 1980 COVID-19 Vaccine (#1) 1980 HIV Screening 1995 Hepatitis C Screening 1998 DTaP,Tdap,and Td Vaccines (1 - Tdap) 1999 Depression Screening 09/09/2019 09/09/2018 Influenza Vaccine (FLU shot) (#1) 2023 06/23/2019, [...] as of this encounter Visit Diagnoses Diagnosis Contusion of left thigh, subsequent encounter- Primary Contusion of left knee, subsequent encounter documented in this encounter Care Teams Account Adjuster Relationship Specialty Start Date End Date Benton Rivas MD [address] [place] [address] PCP - General Family Medicine 08/16/23 documented as of this encounter
--- OUTSIDE RECORDS SUMMARY | 2024-03-03 18:25 | External Medical Summary ---
Author Name Unknown Address Unknown Organization [id number]:[facility] [address] [place] [address] Laboratory Report Ordering Provider Test Date Status GABRIEL ROSENBERG 10/22/2023 11:15:56 Final Observation Date Value Abnormality Reference (Units ) Status SYNC LEUKOCYTES IN BLOOD BY AUTOMATED COUNT 10/22/2023 11:15:56 4.07 4.00-10.80 (K/uL) Final Segs 10/22/2023 11:15:56 55.8 40.0-75.0 (%) Final Lymphs % 10/22/2023 11:15:56 29.7 18.0-42.0 (%) Final Monos 10/22/2023 11:15:56 8.8 1.0-11.0 (%) Final Eosinophils 10/22/2023 11:15:56 5.2 0.0-6.0 (%) Final Basos 10/22/2023 11:15:56 0.5 0.0-2.0 (%) Final Absolute Segs 10/22/2023 11:15:56 2.27 1.80-7.70 (K/uL) Final Lymphs, absolute 10/22/2023 11:15:56 1.21 1.00-4.80 (K/ul) Final Monos, Abs 10/22/2023 11:15:56 0.36 0.00-1.10 (K/uL) Final Eos, Abs 10/22/2023 11:15:56 0.21 0.00-0.70 (K/uL) Final Basos, Abs 10/22/2023 11:15:56 0.02 0.00-0.20 (K/uL) Final Performing Location [facility] - [address] [place] [address]
--- OUTSIDE RECORDS SUMMARY | 2024-03-03 18:25 | External Medical Summary ---
Author Name Unknown Address Unknown Organization K01:[facility] - [address] [place] [address] Laboratory Report Ordering Provider Test Date Status GABRIEL ROSENBERG 10/22/2023 11:15:56 Final Observation Date Value Abnormality Reference (Units ) Status CRP, low-sensitivity 10/22/2023 11:15:56 <3 <=5 (mg/L) Final Performing Location [facility] - [address] [place] [address]
--- OUTSIDE RECORDS SUMMARY | 2024-03-03 18:25 | External Medical Summary | Summary of Care ---
Author Name Unknown Organization [facility] Address [address] [place] [address] Phone [phone] Care Team Providers Care Machine Cloth Trimmer Name Role Phone Benton Rivas MD Primary Care Provider [phone] Reason for Visit * Reason Comments NEW PATIENT Diverticulitis * Evaluate & Treat - Unlimited Visits (Within 30 days (routine)) - Authorized Specialty Diagnoses / Procedures Referred By Julia [email or web address] Referred To Contact Colon and Rectal Surgery / General Surgery Diagnoses Diverticulitis of colon Leslye Mcgowan CRNP [address] [facility] [place] [address] Referral ID Status Reason Start Date Expiration Date Visits Requested Visits Authorized [id number] Authorized Specialty Services Required 3 [phone] Encounter Details Date Type Department Care Team (Late st Contact Info) Description 10/06/2023 12:30 PM EST Office Visit General Surgery, [facility] [address] [facility] [place] [address] Maria Esther Cancino MD [address] [place] [address] Diverticulitis, colon*; Ulcerative proctitis without complication (HCC) Allergies No known active allergiesdocumented as of this encounter (statuses as of 10/06/2023) Medications Medication Sig Dispensed Refills Start Date [...] as of this encounter (statuses as of 10/06/2023) Active Problems Problem Noted Date Diagnosed Date NO KNOWN PROBLEMS 02/20/2010 Ulcerative proctitis documented as of this encounter (statuses as of 10/06/2023) Immunizations Name Administration Dates Next Due Seasonal [...] Sign Reading Time Taken Comments Blood Pressure 148/87 10/06/2023 12:19 PM EST Pulse 86 10/06/2023 12:19 PM EST Temperature 36.3 C (97.3 F) 10/06/2023 12:[address] Respiratory Rate - - Oxygen Saturation 98% 10/06/2023 12:19 PM EST Inhaled Oxygen Concentration - - Weight 98.2 kg (216 lb 6.4 oz) 10/06/2023 12:19 PM EST Height - - Body Mass Index 28.55 09/11/2023 9:50 AM EST documented in this encounter Progress Notes * Maria Esther Cancino MD - 10/06/2023 12:39 PM EST COLORECTAL SURGERY [facility] Titi Mata [id number] 10/06/2023 HPI: Titi Mata is a 43 year old male referred by ERICK Estrada who presents in clinic for diverticulitis. He has a history of ulcerative colitis currently managed with mesalamine.In the last year he has had two episodes of uncomplicated diverticulitis. He is currently asymptomatic. He is having normal bowel function. No history of abdominal surgery. Last colonoscopy was 09/21/22 which showed no active inflammation. His last colonoscopy showed diverticulosis throughout his entire colon. Past Medical History: Diagnosis Date Asthma Environmental allergies Ulcerative colitis (HCC) 2017 Ulcerative proctitis (HCC) Past Surgical History: Procedure Laterality Date COLONOSCOPY 2018 COLONOSCOPY, DIAGNOSTIC (RECTUM) N/A 02/24/2018 moderately active chronic proctitis consistent with limited UC of rectum/random colon biopsies werenormal and polyps were hyperplastic/flexible sigmoidoscopy 6 months/COLONOSCOPY FLEXIBLE PROXIMAL DIAGNOSTIC performed by Ray Ornelas MD at ENDOSCOPY [facility] COLONOSCOPY, DIAGNOSTIC (RECTUM) 10/05/2018 proctitis ulcerative colitis, serrated polyp, diverticulosis, repeat 3 yrs/[facility] COLONOSCOPY, DIAGNOSTIC (RECTUM) 09/21/2022 hyperplastic polyp, repeat 3 yrs / COLONOSCOPY FLEXIBLE PROXIMAL DIAGNOSTIC performed by Kwaku Novoa DO at ENDOSCOPY [facility] EGD, FLEXIBLE, DIAGNOSTIC 2020 eosinophilic esophagitis, reflux esophagitis / ESOPHAGOGASTRODUODENOSCOPY (EGD), FLEXIBLE, TRANSORAL, DIAGNOSTIC performed by Ray Ornelas MD at ENDOSCOPY [facility] KNEE ARTHROSCOPY/REPAIR LIGAMENT Right VASECTOMY Bilateral 09/13/2015 Current Outpatient Medications Medication Sig Dispense Refill Omeprazole 20 MG Oral Capsule Delayed Release (PriLOSEC) Take 1 capsule by mouth twice daily 1 hourprior to morning and evening meals. 180 Capsule 3 Mesalamine 1.2 GM Oral Tablet Delayed Release (Lialda) Take 2 Tablets by mouth in the morning. 180 Tablet 3 albuterol (PROAIR HFA) 108 (90 BASE) MCG/ACT inhaler Inhale 2 Puffs by mouth 4 times a day. (Patient taking differently: Inhale 2 Puffs by mouth in the morning and 2 Puffs at noon and 2 Puffs in the evening and 2 Puffs before bedtime. prn.) 1 Inhaler 1 Vitamin B-12 1000 MCG Sublingual Tablet Sublingual [...] of patient's allergies indicates: No Known Allergies Family History Problem Relation Age of Onset No Past Hx None Hypertension Mother No Known Problems Father No Known Problems Brother No Known Problems Grandmother (Maternal) No Known Problems Grandfather (Maternal) Lupus Grandmother (Paternal) Prostate cancer Grandfather (Paternal) No Known Problems Brother Social History Socioeconomic History Marital status: Spouse name: Not on file Number of children: Not on file Years of education: Not on file Highest education level: Not on file Occupational 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 Tobacco Use Smoking status: Never Smokeless tobacco: Never Vaping Use Vaping Use: Never used Substance and Sexual Activity Alcohol use: Yes Comment: occasional Drug use: No Sexual activity: Yes Partners: Female Comment: Vasectomy Other Topics Concern Not on file Social History Narrative Not on file Social Determinants of Health Financial Resource Strain: Not on file Food Insecurity: Not on file Transportation Needs: Not on file Physical Activity: Not on file Stress: Not on file Social Connections: Not on file Intimate Partner Violence: Not on file Housing Stability: Not on file Review of Systems: A comprehensive review of systems is negative unless otherwise noted in the HPI. Physical Examination: BP 148/87 | Pulse 86 | Temp 36.3 C (97.3 F) | Wt 98.2 kg (216 lb 6.4 oz) | SpO2 98% | BMI 28.55kg/m | BSA 2.25 m General:alert and oriented x 3 HEENT: PERRLA Heart: rrr Lungs: bilaterally clear to auscultation Abdomen:Soft, non distended, non tender Extremities: no CCE Skin: no skin changes Musculoskeletal: FROM Labs: N/A Radiology: CT (06/18/22) : IMPRESSION Acute diverticulitis of the sigmoid colon. CT (04/29/23): IMPRESSION: Acute diverticulitis of the descending colon. Small volume free fluid in the adjacent left paracolic gutter. No discrete rim enhancing fluid collection. Assessment: 43 year old male with a history of ulcerative colitis who has two episodes of uncomplicated diverticulitis in the last year (3 total). The imaging shows diverticulitis in different areas and he did not have a CT with his previous episodes. Plan: -We discussed the etiology of diverticulitis and the complex picture given the dunn-colonic diverticulosis and ulcerative colitis. The patient would like to hold off on surgery regardless unless absolutely necessary. If patient's symptoms return will repeat CT scan to evaluate what section of the colon is involved and differentiate between diverticulitis and UC flare. He will also call of a prescription when he develops symptoms to keep them under control. All of his questions were answered and he will follow-up PRN. Maria Esther Cancino MD General Surgery, [address] [address] documented in this encounter Nursing Notes * Mira Donohue LPN - 10/06/2023 12:20 PM EST Patient identified by name and date of . Chief Complaint Patient presents with NEW PATIENT Diverticulitis documented in this encounter Plan of Treatment Upcoming Encounters Date Type Department Care Team (Late st Contact Info) Description 10/22/2023 10:40 AM EST Office Visit [facility] [address] [place] [address] Benton Rivas MD [address] [place] [address] Scheduled Procedures Name Priority Associated Diagnoses Date/Ti me COLONOSCOPY FLEXIBLE PROXIMA L DIAGNOSTIC Recall Chronic ulcerative proctitis (HCC) Scheduled Referrals Name Type Priority Associated Diagnoses Orde r Schedule COLORECTAL SURGERY REFERRAL OP Referral Within 30 days (routine) Diverticulitis of colon Ordered: 08/31/2023 Health Maintenance Due Date Last Done Comments [...] as of this encounter Visit Diagnoses Diagnosis Diverticulitis, colon- Primary Diverticulitis of colon (without mention of hemorrhage) Ulcerative proctitis without complication (HCC) documented in this encounter Care Teams Machine Cloth Trimmer Relationship Specialty Start Date End Date Benton Rivas MD [address] [place] [address] PCP - General Family Medicine 08/16/23 documented as of this encounter"
--- OUTSIDE RECORDS SUMMARY | 2024-03-03 18:25 | External Medical Summary ---
Author Name Unknown Address Unknown Organization K0G:[facility] [address] - [address] [place] [address] Laboratory Report Ordering Provider Test Date Status GABRIEL ROSENBERG 10/22/2023 11:15:56 Final Observation Date Value Abnormality Reference (Units ) Status WBC, Total 10/22/2023 11:15:56 4.07 4.00-10.8 0 (K/uL) Final RBC 10/22/2023 11:15:56 5.32 4.50-5.25 (M/uL) Final Hemoglobin 10/22/2023 11:15:56 16.0 14.0-16.8 (g/dL) Final HCT 10/22/2023 11:15:56 46.1 40.0-48.4 (%) Final MCV 10/22/2023 11:15:56 86.7 82.0-99.5 (fL) Final MCH 10/22/2023 11:15:56 30.1 27.0-34.0 (pg) Final MCHC 10/22/2023 11:15:56 34.7 32.0-36.0 (g/dL) Final RDW 10/22/2023 11:15:56 12.5 11.5-15.5 (%) Final Platelets 10/22/2023 11:15:56 207 140-400 (K /uL) Final MPV 10/22/2023 11:15:56 10.4 6.6-11.1 ( fL) Final Performing Location [facility] - [address] [place] [address]
--- OUTSIDE RECORDS SUMMARY | 2024-03-03 18:25 | External Medical Summary ---
Author Name Unknown Address Unknown Organization K01:[facility] - [address] [place] [address] Laboratory Report Ordering Provider Test Date Status GABRIEL ROSENBERG 10/22/2023 11:15:56 Final Observation Date Value Abnormality Reference (Units ) Status Erythrocyte sedimentation rate by Photometric method 10/22/2023 11:15:56 2 <15 (mm/hour) Final Performing Location [facility] - [address] [place] [address]
--- OUTSIDE RECORDS SUMMARY | 2024-03-04 00:30 | External Medical Summary | Summary of Care ---
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 Encounter Details Date Type Department Care Team (Late st Contact Info) Description 03/03/2024 10:00 AM EDT Office Visit Family [facility] [address] [facility] [place] [address] Benton Rivas MD [address] [place] [address] Acute diverticulitis*; Ulcerative proctitis with rectal bleeding (HCC) Allergies No known active allergiesdocumented as of this encounter (statuses as of 03/03/2024) Medications Medication Sig Dispensed Refills Start Date [...] evening meals. 180 Capsule 3 10/22/2023 Active Hospital, Clinic, or Other Facility Administered Medication Ordered Dose Route Frequency Start Date End Date Status sodium chloride 0.9 % flush/inj 10 mL 10 mL IV PUSH ONCE 03/03/2024 03/03/2024 Active documented as of this encounter (statuses as of 03/03/2024) Active Problems Problem Noted Date Diagnosed Date Diverticulosis of large intestine without hemorr tyler 10/06/2023 Eosinophilic esophagitis 10/06/2023 Overweight (BMI 25.0-29.9) 10/06/2023 Ulcerative proctitis documented as of this encounter (statuses as of 03/03/2024) Resolved Problems Problem Noted Date Diagnosed Date Resolved Date NO KNOWN PROBLEMS 02/20/2010 10/06/2023 documented as of this encounter (statuses as of 03/03/2024) Immunizations Name Administration Dates Next Due Seasonal [...] Sign Reading Time Taken Comments Blood Pressure 118/82 03/03/2024 10:02 AM EDT Pulse 72 03/03/2024 10:02 AM EDT Temperature 36.3 C (97.4 F) 03/03/2024 10:02 AM E DT Respiratory Rate - - Oxygen Saturation 99% 03/03/2024 10:02 AM EDT Inhaled Oxygen Concentration - - Weight 96.7 kg (213 lb 3.2 oz) 03/03/2024 10:02 AM EDT Height 185.4 cm (6' 1") 03/03/2024 10:02 AM EDT Body Mass Index 28.13 03/03/2024 10:02 AM EDT documented in this encounter Progress Notes * Benton Rivas MD - 03/03/2024 10:18 AM EDT SUBJECTIVE: Titi Mata is a 43 year old male. Chief Complaint Patient presents with Acute Discuss CT Scan for flair. HPI: Jonh is a pleasant 43 year old gentleman with ulcerative colitis and diverticulosis who started to have lower abdominal pain with bloody bms yesterday. CT in office this morning shows acute sigmoid diverticulitis without microperforation. He is quite uncomfortable on exam. His works in our [email or web address] and will bring him to the ER now. Patient Active Problem List Diagnosis Ulcerative proctitis (HCC) Diverticulosis of large intestine without hemorrhage Eosinophilic esophagitis Overweight (BMI 25.0-29.9) Current Outpatient Medications Medication Sig Dispense Refill Mesalamine 1.2 GM Oral Tablet Delayed Release (Lialda) Take 2 Tablets by mouth in the morning. 180 Tablet 3 Omeprazole 20 MG Oral Capsule Delayed Release (PriLOSEC) Take 1 capsule by mouth twice daily 1 hourprior to morning and evening meals. 180 Capsule 3 albuterol (PROAIR HFA) 108 (90 BASE) MCG/ACT inhaler Inhale 2 Puffs by mouth 4 times a day. (Patient taking differently: Inhale 2 Puffs by mouth in the morning and 2 Puffs at noon and 2 Puffs in the evening and 2 Puffs before bedtime. prn.) 1 Inhaler 1 Current Facility-Administered Medications Medication Dose Route Frequency Provider Last Rate Last Admin sodium chloride 0.9 % flush/inj 10 mL 10 mL IV Push Once Benton Rivas MD Allergy: Review of patient's allergies indicates: No Known Allergies OBJECTIVE: BP 118/82 | Pulse 72 | Temp 36.3 C (97.4 F) | Ht 1.854 m (6' 1") | Wt 96.7 kg (213 lb 3.2 oz) |SpO2 99% | BMI 28.13 kg/m | BSA 2.23 m Gen: nad Abdomen: tender in lower abdomen ASSESSMENT AND PLAN: (K57.92) Acute diverticulitis (primary encounter diagnosis) Plan: sent to ED; sign out given to quality control head in ED (K51.211) Ulcerative proctitis with rectal bleeding (HCC) Plan: see above Follow up as needed. No other complaints were offered at this time. Benton Rivas MD documented in this encounter Nursing Notes * Diego Joshi MED ASSIST - 03/03/2024 10:02 AM EDT The patient has been properly identified by confirmation of name and date of . Chief Complaint Patient presents with Acute Discuss CT Scan for flair. documented in this encounter Plan of Treatment Upcoming Encounters Date Type Department Care Team (Late st Contact Info) Description 10/27/2024 10:20 AM EST Office Visit Family [facility] [address] [place] [address] Benton Rivas MD [address] [place] [id number] Scheduled Procedures Name Priority Associated Diagnoses Date/Ti me COLONOSCOPY FLEXIBLE PROXIMA L DIAGNOSTIC Recall Chronic ulcerative proctitis (HCC) Health Maintenance Due Date Last Done Comments HIV Screening 1995 Hepatitis C Screening 1998 DTaP,Tdap,and Td Vaccines (1 - Tdap) 1999 Hepatitis B (1 of 3 - 19+ 3-dose series) 1999 Depression Screening 09/09/2019 09/09/2018 COVID-19 Vaccine ( season) 2023 Influenza Vaccine (FLU shot) (Season [...] as of this encounter Visit Diagnoses Diagnosis Acute diverticulitis- Primary Diverticulitis of colon (without mention of hemorrhage) Ulcerative proctitis with rectal bleeding (HCC) documented in this encounter Care Teams Railcar Mechanic Relationship Specialty Start Date End Date Benton Rivas MD [address] [place] [address] PCP - General Family Medicine 08/16/23 documented as of this encounter
--- OUTSIDE RECORDS SUMMARY | 2024-03-04 00:30 | External Medical Summary | Summary of Care ---
Author Name Unknown Organization [facility] Address [address] [place] [facility] [place] [address] Phone [phone] Care Team Providers Care Launchman Name Role Phone Benton Rivas MD Primary Care Provider [phone] Reason for Visit * Reason Onset Date Comments Information 03/03/2024 CT abd/pel image s from 03/03/24 pushed to [facility]. Report faxed to [phone] ER [facility]. Encounter Details Date Type Department Care Team (Late st Contact Info) Description 03/03/2024 [address]phone [address] [place] [address] Emmanuelle Jordan, RT (R) Information (CT abd/pel images from ... Allergies No known active allergiesdocumented as of [...] encounter Miscellaneous Notes * Telephone Encounter - Emmanuelle Jordan RT (R) - 03/03/2024 10:[address] abd/pel images from 03/03/24 pushed to [facility]. Report faxed to [phone] ER [facility]. documented in this encounter Plan of Treatment Upcoming Encounters Date Type Department Care Team (Late st Contact Info) Description 10/27/2024 10:20 AM EST Office Visit Family [facility] [address] [place] [address] Benton Rivas MD [address] [place] [id number] Scheduled Procedures Name Priority Associated Diagnoses Date/Ti me COLONOSCOPY FLEXIBLE PROXIMA L DIAGNOSTIC Recall Chronic ulcerative proctitis (HCC) Health Maintenance Due Date Last Done Comments HIV Screening 1995 Hepatitis C Screening 1998 DTaP,Tdap,and Td Vaccines (1 - Tdap) 1999 Hepatitis B (1 of 3 - 19+ 3-dose series) 1999 Depression Screening 09/09/2019 09/09/2018 COVID-19 Vaccine (1 - season) 2023 Influenza Vaccine (FLU shot) (Season [...] filedocumented as of this encounter Care Teams Launchman Relationship Specialty Start Date End Date Benton Rivas MD [address] [place] [address] PCP - General Family Medicine 08/16/23 documented as of this encounter
[2024-03-04 07:07] LABS: Basophils # (auto) 0.03 K/uL (0.00-0.20); Basophils % (auto) 0.4 %; Eosinophils # (auto) 0.06 K/uL (0.00-0.50); Eosinophils % (auto) 0.8 %; Hematocrit (blood only) 39.3 % (42.0-52.0); Hemoglobin 13.8 g/dl (14.0-18.0); Immature Granulocytes # (auto) 0.03 K/uL (0.01-0.20); Immature Granulocytes % (auto) 0.4 %; Lymphocytes # (auto) 0.63 K/uL (1.20-3.40); Mean Corpuscular Hemoglobin 30.3 pg (25.0-34.0); Mean Corpuscular Hgb Conc 35.1 g/dL (32.0-36.0); Mean Corpuscular Volume 86.2 fL (80.0-100.0); Mean Platelet Volume 10.3 fL (9.4-12.4); Monocytes # (auto) 0.65 K/uL (0.11-0.59); Monocytes % (auto) 8.2 %; Neutrophils # (auto) 6.49 K/uL (1.40-6.50); Neutrophils % (auto) 82.2 %; Platelet Count 167 K/uL (130-400); RDW Coefficient of Variation 11.9 % (11.5-14.5); RDW Standard Deviation 37.1 fL (36.4-46.3); Red Blood Count 4.56 M/uL (4.70-6.10); White Blood Count 7.89 K/ul (4.8-10.8)
[2024-03-04 07:53] LABS: Albumin Globulin Ratio 1.3 (0.9-2); Albumin Level 3.8 gm/dl (3.4-5.0); BUN Creatinine Ratio 8.4 (10-20); Bilirubin,Total 1.1 mg/dl (0.2-1.0); Calcium 8.8 mg/dl (8.6-10.3); Creatinine Clr Calc Pharmacy 96.3 ml/min; Est GFR (African American) 86.2 ml/min; Est GFR (Non-African American) 74.4 ml/min; Globulin 2.9 gm/dl (2.5-4.0); Potassium 3.9 mmol/L (3.5-5.1); Total Protein 6.7 gm/dl (6.0-8.3)
[2024-03-04] MEDS: KETOROLAC TROMETHAMINE 15 MG/ML VIAL IV PRN (08:50)
[2024-03-04] MEDS: PANTOprazole 40 MG TAB PO SCH (08:52)
--- NOTE | 2024-03-04 12:27 | Hospitalist Progress Note ---
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 He is being managed for the following: Diverticulitis: Abdominal pain, acute, left lower quadrant: 03/03/[address] abdomen pelvis with IV and oral contrast with impression of "Acute sigmoid diverticulitis, no intra-abdominal or intrapelvic lymphadenopathy, no ascites, abscess or pneumoperitoneum noted". In ER afebrile, vitals stable. No leukocytosis Stool Cx and C diff sent, uncollected. Clear liquid diet, tolerating well, adv to full liq diet. Continue Zosyn 03/03 Tylenol, Toradol, Morphine prn pain labs in am. Ulcerative colitis: Continue mesalamine Does not appear to be UC flare at this time. Monitor closely. If recurrent hematochezia or worsening consider GI consult Asthma: No signs exacerbation. Continue prn albuterol GERD: Continue home PPI DVT prophylaxis: Ambulate, SCDs Full code Admission and Anticipated Discharge Date Admission Date: March 03, 2024 Subjective Patient was seen and examined at bedside. Patient was sitting up in bed, on room air, NAD, resting comfortably. Patient reports improving lower abdominal pain, denies pain with clear liquid diet, is agreeable to advance to full liquid diet. Denies nausea/vomiting. Patient denies. Illness/cough/chest pain/palpitation. Patient reports feeling better. Physical Exam Physical Exam: General: no acute distress, WDWN Head: normocephalic, atraumatic Eyes: conjunctiva non-injected, anicteric ENT: normal inspection external ears, nose, mucous membranes moist Neck: supple, trachea midline Lungs: clear, no respiratory distress, no wheezing/rhonchi/rales CV: RRR, no murmur, no pretibial edema Abd: normal BS, soft, +tender to palpation LLQ without rebound - improving Ext: no cyanosis, no calf tenderness Neuro: A&O x 3, no focal deficits noted, normal affect Skin: warm, dry Results & Data Results & Data Vital Signs (Past 12 Hours) Vital Signs Temp Pulse Resp BP Pulse Ox O2 Del Method 03/04/24 07:46 36.8 C 70 16 147/92 H 98 Room Air
[2024-03-05 06:30] LABS: Hemoglobin 13.5 g/dl (14.0-18.0); Mean Corpuscular Hemoglobin 29.5 pg (25.0-34.0); Mean Corpuscular Hgb Conc 34.6 g/dL (32.0-36.0); Mean Corpuscular Volume 85.2 fL (80.0-100.0); Mean Platelet Volume 10.5 fL (9.4-12.4); Platelet Count 180 K/uL (130-400); RDW Coefficient of Variation 11.6 % (11.5-14.5); RDW Standard Deviation 35.6 fL (36.4-46.3); Red Blood Count 4.58 M/uL (4.70-6.10); White Blood Count 4.77 K/ul (4.8-10.8)
[2024-03-05 06:45] LABS: BUN Creatinine Ratio 7.8 (10-20); Calcium 8.9 mg/dl (8.6-10.3); Creatinine Clr Calc Pharmacy 99.6 ml/min; Est GFR (African American) 89.8 ml/min; Est GFR (Non-African American) 77.5 ml/min; Magnesium 1.9 mg/dl (1.7-2.4); Phosphorus 2.7 mg/dl (2.5-4.9)
[2024-03-05 07:35] LABS: Adenovirus F 40/41 PCR Not Detected (NotDetected); Astrovirus PCR Not Detected (NotDetected); Campylobacter PCR Not Detected (NotDetected); Cryptosporidium PCR Not Detected (NotDetected); Cyclospora cayetanensis PCR Not Detected (NotDetected); Entamoeba histolytica PCR Not Detected (NotDetected); Enteroaggregative E.coli(EAEC) Not Detected (NotDetected); Enteropathogenic E.coli (EPEC) Not Detected (NotDetected); Enterotoxigenic E.coli (ETEC) Not Detected (NotDetected); Giardia lamblia PCR Not Detected (NotDetected); Norovirus GI/GII PCR Not Detected (NotDetected); Plesiomonas shigelloides PCR Not Detected (NotDetected); Rotavirus A PCR Not Detected (NotDetected); Salmonella PCR Not Detected (NotDetected); Sapovirus PCR Not Detected (NotDetected); Shiga-like Toxin E.coli (STEC) Not Detected (NotDetected); Shigella/Enteroinvasive E.coli Not Detected (NotDetected); Vibrio cholerae PCR Not Detected (NotDetected); Vibrio species PCR Not Detected (NotDetected); Yersinia enterocolitica PCR Not Detected (NotDetected)
--- NOTE | 2024-03-05 13:46 | Discharge Summary ---
Date of Service March 05, 2024 Admission HPI Per Admitting Provider Patient is 43 year old male with PMH ulcerative colitis, diverticulosis and diverticulitis, asthma, GERD c/o left lower quadrant pain x 1 day. Patient states yesterday started with cramping and sharp left lower quadrant pain that is nonradiating. He reports stools have been loose. He reports has had approximately 10 BMs however have been very small in volume. He reports a lot of flatus. He states 1 time he noted red bloody stool. Had BM in ER today and didn't notice hematochezia. Denies nausea. He reports 3 episodes diverticulitis in the past year treated with oral Cipro and Flagyl that has not required hospi talization. He states he has Cipro and Flagyl to start at any sign of abdominal pain. He started taking Cipro and Flagyl yesterday. Today seen at PCPs office and PCPs note reviewed. Today, 03/03/[address] abdomen pelvis with IV and oral contrast with impression of "Acute sigmoid diverticulitis, no intra-abdominal or intrapelvic lymphadenopathy, no ascites, abscess or pneumoperitoneum noted". He was referred to ER today for further evaluation. Previously seen by [facility] surgery, Dr Cancino on 10/06/2023 for history recurrent episodes of uncomplicated diverticulitis. Note reviewed and had recommended if recurrent symptoms recommend CT abd/pelvis to try to differentiate between diverticulitis and UC flare. Follows with [facility] and is on mesalamine for ulcerative colitis. Denies fever/chills, diaphoresis, vomiting, WYATT, dizziness, CP, SOB, palpitations, cough, rhinorrhea, extremity weakness, extremity edema, rashes, urinary symptoms. Admission Exam Per Admitting Provider General: no acute distress, WDWN Head: normocephalic, atraumatic Eyes: conjunctiva non-injected, anicteric ENT: normal inspection external ears, nose, mucous membranes moist Neck: supple, trachea midline Lungs: clear, no respiratory distress, no wheezing/rhonchi/rales CV: RRR, no murmur, no pretibial edema Abd: normal BS, soft, +tender to palpation LLQ without rebound Ext: no cyanosis, no calf tenderness Neuro: A&O x 3, no focal deficits noted, normal affect Skin: warm, dry Principal Diagnosis Diverticulitis History of ulcerative colitis Discharge Exam General: no acute distress, WDWN Head: normocephalic, atraumatic Eyes: conjunctiva non-injected, anicteric ENT: normal inspection external ears, nose, mucous membranes moist Neck: supple, trachea midline Lungs: clear, no respiratory distress, no wheezing/rhonchi/rales CV: RRR, no murmur, no pretibial edema Abd: normal BS, soft, non tender llq Ext: no cyanosis, no calf tenderness Neuro: A&O x 3, no focal deficits noted, normal affect Skin: warm, dry Discharge Data Allergies Allergy/AdvReac Type Severity Reaction Status Date / Time No Known Allergies Verified 03/03/24 12:15 Consultations 03/03/24 13:29 ED Decision to Admit Stat Hospital Course (1) Diverticulitis: Plan 43 year old male with PMH of ulcerative colitis, diverticulosis and diverticulitis, asthma, GERD 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 He was managed for the following: Diverticulitis: Abdominal pain, acute, left lower quadrant: 03/03/[address] abdomen pelvis with IV and oral contrast with impression of "Acute sigmoid diverticulitis, no intra-abdominal or intrapelvic lymphadenopathy, no ascites, abscess or pneumoperitoneum noted". In ER afebrile, vitals stable. No leukocytosis Stool pcr neg Pt tolerating full liq, adv to low fiber, tolerated well w/ no increase in pain, patient would like to go home c/w 03/03 zosyn --> to augmenting to complete 10 day course. Pt advised to c/w soft/low fiber diet for next week on discharge. Pt reports pain has improved significantly. Ulcerative colitis: Continue mesalamine Does not appear to be UC flare at this time. Monitor closely. If recurrent hematochezia or worsening consider GI consult Asthma: No signs exacerbation. Continue prn albuterol GERD: Continue home PPI DVT prophylaxis: Ambulate, SCDs Full code Patient is being discharged home with following instruction at the point of discharge: Follow-up with your primary care physician within a week time and likely you will need labs CBC/CMP/magnesium/phosphorus. You were admitted for diverticulitis, you will be discharged on Augmentin to complete the course for diverticulitis. Take your medications as prescribed. Please make sure that you are able to get your medications today by calling your pharmacy before you leave the hospital so that your treatment continuity is not broken. Home Health Attestation I certify that this patient is under my care and that I, or a physicians refinery operator assistant working with me, had a face to-face encounter that meets the home health [id number] encounter requirements with this patient. The encounter with the patient was in whole, or in part, for the following medical condition, which is the primary reason for home health care (list medical condition): I certify that, based on my findings, the following services are medically necessary home health services: My clinical findings support the need for the above services because: Further, I certify that my clinical findings support that this patient is homebound (i.e. absences from home require considerable and taxing effort and are for medical reasons or scientology services or infrequently or of short duration when for other reasons) because: Certification for Home Health Services: Based on the above findings, I certify that this patient is confined to the home and needs intermittent mcc care, physical therapy and/or speech therapy or continues to need occupational therapy. The patient is under my care, and I have initiated the establishment of the plan of care. This patient will be followed by a physician who will periodically review the plan of care. Total Time Total Time Spent Total Time Spent (In Minutes): 45 Discharge Plan Discharge Items Patient Disposition: Home - Self-Care Reason For Visit: diverticulits Discharge Diagnosis: Diverticulitis History of ulcerative colitis Condition on Discharge: Good Activity: Resume your previous activity Non-emergency contact: Primary Care Provider Call non-emergency contact if: you have any medication questions Follow-up/Referrals: Benton Rivas MD [Primary Care Provider] - Diet: Low Fiber Diet Texture: Dental soft (bite-sized) Addtl Attending Provider Instructions: Follow-up with your primary care physician within a week time and likely you will need labs CBC/CMP/magnesium/phosphorus. You were admitted for diverticulitis, you will be discharged on Augmentin to complete the course for diverticulitis. Take your medications as prescribed. Please make sure that you are able to get your medications today by calling your pharmacy before you leave the hospital so that your treatment continuity is not broken. Pending Studies at Discharge: No Stand-Alone Forms: My [facility], Smoking Cessation Medications and DC Order Prescriptions: New amoxicillin-pot clavulanate 875-125 mg tablet 1 tab PO BID 8 Days Qty: 16 0RF Probiotic 3 billion cell capsule 3,000 mmu cells PO DAILY 14 Days Qty: 14 0RF Rx Instructions: administer with a meal Continued mesalamine 1.2 gram Tablet,Delayed Release (Dr/Ec) 2.4 g PO HS ascorbic acid (vitamin C) [Vitamin C] 500 mg Tablet 500 mg PO DAILY dicyclomine 20 mg Tablet 20 mg PO TID PRN (Reason: Abdominal Pain) albuterol sulfate [ProAir HFA] 90 mcg/actuation Hfa Aerosol Inhaler 2 puff INHALATION QID PRN (Reason: Shortness Of Breath) mesalamine 1,000 mg Suppository 1 g WA HS PRN (Reason: Pain) omeprazole 20 mg Tablet,Delayed Release (Dr/Ec) 20 mg PO DAILY Rx Instructions: pt never took med Discontinued metronidazole 500 mg tablet 0 mg PO TID Rx Instructions: Pt was given prescription 11/2023 x7 day supply but did not complete medication. Started re-taking this on 03/02/24 in anticipation of this flare being diverticulitis. Original Directions: 500mg by mouth three times daily. ciprofloxacin HCl 500 mg tablet 0 mg PO BID Rx Instructions: Pt was given prescription 11/2023 x7 day supply but did not complete medication. Started re-taking this on 03/02/24 in anticipation of this flare being diverticulitis. Original Directions: 500mg by mouth twice daily. Discharge Orders: Discharge Order (Routine); Ordered 03/05/24 Ordered By: Terry Machado Admission Data Admit Date/Time: 03/03/24 13:47 Attending Provider: Terry Machado Admit Provider: Betro Jenkins Primary Care Provider: Benton Rivas Other Providers: Berto Jenkins
== END 2024-03-05 15:30 | disposition home or self-care (01) | DRG 392 ==
LOC: ED 10:29 → SUATTDRO 13:47 → 3N 13:47

== ENCOUNTER 2024-03-13 07:15 | Inpatient (IN) ==
--- NOTE | 2024-03-13 07:41 | Emergency Department Note ---
History of Present Illness General Chief complaint: Abdominal Pain Stated complaint: DX WITH DIVERTICULITIS LAST WEEK, SYMPTOMS WORSE Time Seen by Provider: 03/13/24 07:23 History of Present Illness Maximum Pain Intensity: 9 Patient is a 43-year-old male with past medical history significant for ulcerative colitis, diverticulosis/diverticulitis, asthma, GERD, who returns to the emergency department for recurrent lower abdominal pain. Patient was seen in our facility a little over a week ago and was admitted for 2 days for uncomplicated diverticulitis. He was discharged on Augmentin. He has been taking the antibiotics as prescribed. He reports that he has been feeling well since discharge on 03/05, has been pain-free, and has been careful with his diet. He notes that last evening around 1999, the lower abdominal pain returned. It steadily worsened and he had difficulty sleeping overnight. He currently rates his pain a 9/10. He was nauseous. He did not vomit. Stools have been soft/loose, but nonbloody and nonmelanotic. He has not had any fevers. No urinary symptoms. He is due to finish his Augmentin today. Home Medications Medication Instructions Recorded Confirmed Type mesalamine 1.2 gram tablet,delayed 2.4 g PO HS 08/04/18 03/13/24 History release albuterol sulfate 90 mcg/actuation 2 puff inhalation QID PRN 10/04/18 03/13/24 History aerosol inhaler (ProAir HFA) Shortness Of Breath ascorbic acid (vitamin C) 500 mg 500 mg PO DAILY Cold Symptoms 10/04/18 03/13/24 History tablet (Vitamin C) dicyclomine 20 mg tablet 20 mg PO TID PRN Abdominal Pain 10/04/18 03/13/24 History mesalamine 1,000 mg rectal 1 g TN HS PRN Pain 10/04/18 03/13/24 History suppository omeprazole 20 mg tablet,delayed 20 mg PO DAILY Acid Reflux 10/04/18 03/13/24 History release lactobacillus combination no.4 3 3,000 mmu cells PO DAILY 2 weeks 03/05/24 03/13/24 Rx billion cell capsule (Probiotic) #14 caps amoxicillin 875 mg-potassium 1 tab PO BID 03/13/24 03/13/24 History clavulanate 125 mg tablet Allergies Allergy/AdvReac Type Severity Reaction Status Date / Time No Known Allergies Allergy Unverified 03/13/24 08:29 Past Med/Surg History Problem List Acute diverticulitis (Acute) GERD (gastroesophageal reflux disease) Asthma allergy induced, inhaler prn Abdominal pain, acute, left lower quadrant (Acute) Diverticulitis (Acute) Encounter for pre-operative examination Ulcerative colitis (Acute) Surgical History History of arthroscopy of left knee Hx of vasectomy History of colonoscopy History of tooth extraction Family History Other No family history of adverse response to anesthesia Social History Smoking Status: Never smoker Tobacco Type: Cigars Second Hand Exposure: Yes (parents smoked); Do You Dip or Chew Tobacco: No; Hx Alcohol Use: Yes Alcohol type: beer Hx Substance Use: No Preferred Language: Turkish Communication Ability: Effective 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 Beliefs That Will Affect Care: None Current Living Situation: Spouse Current Living Situation Comment: Lives with and 2 kids Feels Safe at Home: Yes Assistive Devices: None Review of Systems A total of 10 systems reviewed and were otherwise negative Physical Exam Vital Signs Vital Signs - 24 hr 03/13/24 07:21 03/13/24 10:04 03/13/24 12:02 Temperature 36.6 C Temperature Source Oral Pulse Rate 72 60 Pulse Rate [Left Finger] 77 Pulse Rhythm [Left Finger] Regular Pulse Strength [Left Finger] Normal Respiratory Rate 18 20 15 Respiratory Effort / Characteristics Non-Labored Spontaneous Non-Labored Spontaneous Respiratory Depth Normal Normal Respiratory Pattern Regular Regular Blood Pressure 133/92 113/71 Blood Pressure [Left Arm] 134/83 Blood Pressure Mean 105 Blood Pressure Mean [Left Arm] 100 Blood Pressure Position [Left Arm] Lying Pulse Oximetry 100 98 96 Oxygen Delivery Method Room Air Room Air Room Air Sepsis Recent Fever Within 48 Hours No Sepsis New/Unexplained Change in Mental Status No Sepsis Action Taken by Nursing No Action Required CONSTITUTIONAL: Well-appearing 43-year-old male laying on the gurney in no acute distress. EYES: Pupils equal, round, reactive to light and accommodation. EOMs intact without nystagmus. Sclera are anicteric. CARDIOVASCULAR: Regular rate and rhythm. Peripheral pulses easy to palpable. RESPIRATORY: Breath sounds equal and clear to auscultation. GI: Bowel sounds are present. Abdomen is soft, nondistended, mildly tender to percussion and palpation through the suprapubic and left lower quadrant without guarding or rebound. MUSCULOSKELETAL: Full range of motion of extremities x 4 with good strength. No cyanosis, edema, joint tenderness or swelling. No deformity. INTEGUMENTARY: No lesions or rash, normal skin turgor. Course Course Patient was seen and assessed as above. External medical records were reviewed, recent inpatient visit noted as well. Outpatient CT from 03/03 noted "acute sigmoid diverticulitis, no intra-abdominal or intrapelvic lymphadenopathy, no ascites, abscess or pneumoperitoneum noted." IV lock was initiated. Laboratory studies were collected. He was hydrated with normal saline solution and medicated with morphine and Zofran for pain and nausea. CT scan of the abdomen pelvis with IV contrast was ordered. Diagnostics, as interpreted by me: Laboratory studies: No leukocytosis. No anemia. No electrolyte imbalance urinalysis or FARAZ. Urinalysis is clear without signs of infection. Imaging studies: CT scan of the abdomen and pelvis with IV contrast shows improvement of the sigmoid diverticulitis from prior, but unfortunately shows evidence for a contained microperforation. There is also now acute diverticulitis of the mid to distal descending colon without abscess. Patient discussed with attending physician, Dr. Hope, and antibiotic regimen discussed with Dipak Barth, Pharm.D. Patient was given Zosyn IV. Patient was reassessed. All laboratory and diagnostic imaging studies were reviewed with him and his . Given the worsening diverticulitis with microperforation, and after review of the information above and other included data, I feel the patient requires admission for further care and IV antibiotics. They were in agreement. questions whether patient could have Toradol for pain as this worked better for him when he was admitted, and was given Toradol 15 mg IV. Patient discussed with ED showcase trimmer and consultation placed with [facility]. Patient will be admitted to their service for further care and management. Differential diagnosis: Bowel obstruction, perforation, abscess, diverticulitis, UC flare, fistula, infectious colitis/enteritis, foodborne illness, electrolyte or metabolic abnormality, dehydration, among others. Administered Medications Discontinued Medications Sodium Chloride (Nss) 1,000 mls @ 999 mls/hr IV .Q1H1M COLLEEN Stop: 03/13/24 08:37 Last Infusion: 03/13/24 08:54 Dose: Infused Documented By: Admin: 03/13/24 07:53 Dose: 999 mls/hr Documented By: NAA Piperacillin Sod/Tazobactam Sod (Zosyn) 4.5 gm in 100 mls @ 200 mls/hr IV NOW ONE Stop: 03/13/24 10:25 Last Infusion: 03/13/24 10:33 Dose: Infused Documented By: Admin: 03/13/24 10:03 Dose: 200 mls/hr Documented By: NAA Ioversol (Optiray 320 100ml) 94 ml IV ONCE ONE Stop: 03/13/24 08:54 Last Admin: 03/13/24 08:53 Dose: 94 ml Documented By: JAVON Ketorolac Tromethamine (Ketorolac Tromethamine 15 Mg/Ml Vial) 15 mg IV NOW STA Stop: 03/13/24 10:16 Last Admin: 03/13/24 10:22 Dose: 15 mg Documented By: NAA Morphine Sulfate (Morphine Sulfate 4 Mg/Ml 1 Ml Carp\\Vial) 4 mg IV NOW STA Stop: 03/13/24 07:36 Last Admin: 03/13/24 07:54 Dose: 4 mg Documented By: NAA Ondansetron HCl (Ondansetron Inj 2 Mg/Ml 2 Ml Vial) 4 mg IV NOW STA Stop: 03/13/24 07:36 Last Admin: 03/13/24 07:53 Dose: 4 mg Documented By: NAA Medical Decision Making Differential Diagnosis See ED Course. Medical Records Attestation: I reviewed the patient's medical records. Home Medications Current Medication List: was personally reviewed by me Laboratory Data Attestation: I reviewed the patient's lab results. 03/13/24 07:55 03/13/24 07:55 Lab Results 03/13/24 03/13/24 Range/Units 07:55 10:01 WBC 8.13 (4.8-10.8) K/ul RBC 5.09 (4.70-6.10) M/uL Hgb 15.1 (14.0-18.0) g/dl Hct 43.7 (42.0-52.0) % MCV 85.9 (80.0-100.0) fL MCH 29.7 (25.0-34.0) pg MCHC 34.6 (32.0-36.0) g/dL RDW Std Deviation 35.8 L (36.4-46.3) fL RDW Coeff of Yusuf 11.5 (11.5-14.5) % Plt Count 320 (130-400) K/uL MPV 9.7 (9.4-12.4) fL Immature Gran % (Auto) 0.4 % Neut % (Auto) 78.4 % Lymph % (Auto) 12.9 % [place] % (Auto) 6.2 % Eos % (Auto) 1.7 % Baso % (Auto) 0.4 % Neut # (Auto) 6.38 (1.40-6.50) K/uL Lymph # (Auto) 1.05 L (1.20-3.40) K/uL [place] # (Auto) 0.50 (0.11-0.59) K/uL Eos # (Auto) 0.14 (0.00-0.50) K/uL Baso # (Auto) 0.03 (0.00-0.20) K/uL Immature Gran # (Auto) 0.03 (0.01-0.20) K/uL Sodium 138 (136-145) mmol/L Potassium 4.2 (3.5-5.1) mmol/L Chloride 105 (98-107) mmol/L Carbon Dioxide 26 (21-32) mmol/L Anion Gap 7 (3-11) BUN 18 (6-23) mg/dl Creatinine 1.13 (0.6-1.4) mg/dl Est Cr Clr Drug Dosing 100.7 ml/min Est GFR ( Amer) 91.8 ml/min Est GFR (Non-Af Amer) 79.2 ml/min BUN/Creatinine Ratio 15.9 (10-20) Glucose 101 H (70-99(Fasting)) mg/dl Calcium 9.2 (8.6-10.3) mg/dl Total Bilirubin 0.5 (0.2-1.0) mg/dl AST 15 (13-39) U/L ALT 22 (7-52) U/L Alkaline Phosphatase 64 (34-104) U/L Total Protein 7.5 (6.0-8.3) gm/dl Albumin 4.4 (3.4-5.0) gm/dl Globulin 3.1 (2.5-4.0) gm/dl Albumin/Globulin Ratio 1.4 (0.9-2) Lipase 18 (11-82) U/L Urine Color Yellow Urine Appearance Clear (Clear) Urine pH 6.5 (4.5-7.5) Ur Specific [place] 1.022 (1.000-1.030) Urine Protein Negative (Negative) Urine Glucose (UA) Negative (Negative) Urine Ketones Negative (Negative) Urine Blood Negative (Negative) Urine Nitrite Negative (Negative) Urine Bilirubin Negative (Negative) Urine Urobilinogen Negative (Negative) Ur Leukocyte Esterase Negative (Negative) Imaging Data Attestation: I personally reviewed and interpreted this imaging study as follows: Radiologist's Impression: Abdomen/Pelvis CT 03/13/24 07:[address] WITH IV CONTRAST CT DOSE: 1408.82 mGy.cm HISTORY: Acute generalized abdominal pain LOWER ABD PAIN, DX WITH DIVERTICULITIS LAST WEEK TECHNIQUE: Multiaxial CT images of the abdomen and pelvis were performed following the IV administration of 94 cc of Optiray, A dose lowering technique was utilized adhering to the principles of ALARA. COMPARISON STUDY: Outside institution CT images without report dated 03/03/2024. FINDINGS: The lung bases are generally clear. No pneumatosis or portal venous gas identified. Spleen is mildly enlarged at 14.5 cm. Unremarkable pancreas, gallbladder and adrenal glands. 1.7 cm left hepatic lobe cyst. Patency of the intrahepatic and portal veins. 11 mm right renal cyst. No hydronephrosis. Unremarkable urinary bladder. Probable small fat filled left inguinal hernia. No abdominal aortic aneurysm or lymphadenopathy. There is no bowel obstruction. Colonic diverticulosis. Mild acute diverticulitis of the mid sigmoid colon with decreased inflammatory stranding and bowel wall thickening compared to the prior study. However there is a collection of extraluminal air within the sigmoid mesocolon on image 307 series 3 measuring up to approximately 3 cm in length. No drainable fluid collections are seen. Prior exam is focal wall thickening with adjacent inflammatory stranding adjacent to a contrast-filled diverticulum of the descending colon on image 257 series 3. Mild to moderate colonic fecal retention. Normal appendix. Unremarkable soft tissues. 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 No acute fracture. IMPRESSION: 1. New from the 03/03/2024 exam is acute diverticulitis of the mid to distal descending colon without abscess. 2. Resolving acute sigmoid diverticulitis has improved from the prior exam, however there is now extraluminal air within the sigmoid mesocolon compatible with a contained perforation. 3. No drainable fluid collections. 4. No bowel obstruction. 5. Mild splenomegaly. ACT 112: Negative or not required by law. The above report was generated using voice recognition software. It may contain grammatical, syntax or spelling errors. Electronically signed by: Kemar Martínez M.D. 03/13/2024 9:50 AM MDM Narrative See ED Course. Impression & Plan Acute diverticulitis Discharge Plan Visit Data Chief Complaint: Abdominal Pain Stated Complaint: DX WITH DIVERTICULITIS LAST WEEK, SYMPTOMS WORSE ED Provider: Estiven Hope ED Midlevel Provider: Eliseo Aragon Discharge Problem: Acute diverticulitis Patient Disposition: Admitted As Inpatient Discharge Instructions Interventions: ED Discharge Assessment Last Done: 03/13/24 12:02 Forms Stand Alone Forms: My [facility] Prescriptions Prescriptions: No Action mesalamine 1.2 gram Tablet,Delayed Release (Dr/Ec) 2.4 g PO HS ascorbic acid (vitamin C) [Vitamin C] 500 mg Tablet 500 mg PO DAILY dicyclomine 20 mg Tablet 20 mg PO TID PRN (Reason: Abdominal Pain) albuterol sulfate [ProAir HFA] 90 mcg/actuation Hfa Aerosol Inhaler 2 puff INHALATION QID PRN (Reason: Shortness Of Breath) mesalamine 1,000 mg Suppository 1 g TN HS PRN (Reason: Pain) omeprazole 20 mg Tablet,Delayed Release (Dr/Ec) 20 mg PO DAILY Rx Instructions: pt never took med Probiotic 3 billion cell capsule 3,000 mmu cells PO DAILY 14 Days Qty: 14 0RF Rx Instructions: administer with a meal amoxicillin-pot clavulanate 875-125 mg tablet 1 tab PO BID Referrals Referrals: Benton Rivas MD [Primary Care Provider] -
[2024-03-13] MEDS: SODIUM CHLORIDE 0.9% 1,000 ML IV SCH ×2 (07:53→12:26)
[2024-03-13] MEDS: ONDANSETRON INJ 2 MG/ML 2 ML VIAL IV STA (07:53)
[2024-03-13] MEDS: MoRPHine SULFATE 4 MG/ML 1 ML CARP\\VIAL IV STA (07:54)
[2024-03-13 08:32] LABS: Basophils # (auto) 0.03 K/uL (0.00-0.20); Basophils % (auto) 0.4 %; Eosinophils # (auto) 0.14 K/uL (0.00-0.50); Eosinophils % (auto) 1.7 %; Hematocrit (blood only) 43.7 % (42.0-52.0); Hemoglobin 15.1 g/dl (14.0-18.0); Immature Granulocytes # (auto) 0.03 K/uL (0.01-0.20); Immature Granulocytes % (auto) 0.4 %; Lymphocytes # (auto) 1.05 K/uL (1.20-3.40); Lymphocytes % (auto) 12.9 %; Mean Corpuscular Hemoglobin 29.7 pg (25.0-34.0); Mean Corpuscular Hgb Conc 34.6 g/dL (32.0-36.0); Mean Corpuscular Volume 85.9 fL (80.0-100.0); Mean Platelet Volume 9.7 fL (9.4-12.4); Monocytes % (auto) 6.2 %; Neutrophils # (auto) 6.38 K/uL (1.40-6.50); Neutrophils % (auto) 78.4 %; Platelet Count 320 K/uL (130-400); RDW Coefficient of Variation 11.5 % (11.5-14.5); RDW Standard Deviation 35.8 fL (36.4-46.3); Red Blood Count 5.09 M/uL (4.70-6.10); White Blood Count 8.13 K/ul (4.8-10.8)
[2024-03-13 08:52] LABS: Albumin Globulin Ratio 1.4 (0.9-2); Albumin Level 4.4 gm/dl (3.4-5.0); BUN Creatinine Ratio 15.9 (10-20); Bilirubin,Total 0.5 mg/dl (0.2-1.0); Calcium 9.2 mg/dl (8.6-10.3); Creatinine Clr Calc Pharmacy 100.7 ml/min; Est GFR (African American) 91.8 ml/min; Est GFR (Non-African American) 79.2 ml/min; Globulin 3.1 gm/dl (2.5-4.0); Potassium 4.2 mmol/L (3.5-5.1); Total Protein 7.5 gm/dl (6.0-8.3)
[2024-03-13] MEDS: OPTIRAY 320 100ml IV ONE (08:53)
--- NOTE | 2024-03-13 09:51 | CT Scan Report ---
ABDOMEN AND PELVIS CT WITH IV CONTRAST CT DOSE: 1408.82 mGy.cm HISTORY: Acute generalized abdominal pain LOWER ABD PAIN, DX WITH DIVERTICULITIS LAST WEEK TECHNIQUE: Multiaxial CT images of the abdomen and pelvis were performed following the IV administrat ion of 94 cc of Optiray, A dose lowering technique was utilized adhering to the principles of ALARA. COMPARISON STUDY: Outside institution CT images without report dated 03/03/2024. FINDINGS: The lung bases are generally clear. No pneumatosis or portal venous gas identified. Spleen is mildly enlarged at 14.5 cm. Unremarkable pancreas, gallbladder and adrenal glands. 1.7 cm left hep atic lobe cyst. Patency of the intrahepatic and portal veins. 11 mm right renal cyst. No hydronephros is. Unremarkable urinary bladder. Probable small fat filled left inguinal hernia. No abdominal aortic aneurysm or lymphadenopathy. There is no bowel obstruction. Colonic diverticulosis. Mild acute diverticulitis of the mid sigmoid c olon with decreased inflammatory stranding and bowel wall thickening compared to the prior study. How ever there is a collection of extraluminal air within the sigmoid mesocolon on image 307 series 3 jillian suring up to approximately 3 cm in length. No drainable fluid collections are seen. Prior exam is focal wall thickening with adjacent inflammatory stranding adjacent to a contrast-fille d diverticulum of the descending colon on image 257 series 3. Mild to moderate colonic fecal retentio n. Normal appendix. Unremarkable soft tissues. Subcortical cystic changes with possible avascular nec rosis of the femoral heads. No acute fracture. IMPRESSION: 1. New from the 03/03/2024 exam is acute diverticulitis of the mid to distal descending colon without abscess. 2. Resolving acute sigmoid diverticulitis has improved from the prior exam, however there is now extr aluminal air within the sigmoid mesocolon compatible with a contained perforation. 3. No drainable fluid collections. 4. No bowel obstruction. 5. Mild splenomegaly. ACT 112: Negative or not required by law. The above report was generated using voice recognition software. It may contain grammatical, syntax o r spelling errors. Electronically signed by: Kemar Martínez M.D. 03/13/2024 9:50 AM
[2024-03-13] MEDS: PIPERACILLIN/TAZOBACTAM 4.5 GM/100 ML BAG IV ONE (10:03)
[2024-03-13 10:10] LABS: Appearance Urine Clear (Clear); Bilirubin Urine Negative (Negative); Blood Urine Negative (Negative); Color Urine Yellow; Glucose Urine UA Negative (Negative); Ketones Urine Negative (Negative); Leukocyte Esterase Urine Negative (Negative); Nitrite Urine Negative (Negative); Protein Urine Negative (Negative); Specific Gravity Urine 1.022 (1.000-1.030); Urobilinogen Urine Negative (Negative); pH Urine 6.5 (4.5-7.5)
[2024-03-13] MEDS: KETOROLAC TROMETHAMINE 15 MG/ML VIAL IV STA (10:22)
--- NOTE | 2024-03-13 10:26 | History & Physical Report ---
Date of Service March 13, 2024 Assessment & Plan (1) Acute diverticulitis: Plan: This is a 43 y/o male with ulcerative colitis, recurrent diverticulitis, asthma, and GERD who presents to the ED with recurrent abdominal pain. Pt was recently admitted for acute sigmoid diverticulitis and was discharged on Augmentin, which he was scheduled to complete today. This is his fourth episode of diverticulitis. Work-up in the ED showed improvement in the sigmoid divertic ulitis although now noted to have a contained perforation, but with new acute descending colon diverticulitis. - Admit to med surg - IV Zosyn started in the ED - will continue - NPO for bowel rest - Surgery consult - Labs in the AM - CBC, BMP - Pain control (IV Toradol, IV morphine) and anti-emetics (IV Zofran) (2) Ulcerative colitis: Plan: Chronic, stable Continue to f/u with GI outpatient Continue mesalamine (3) GERD (gastroesophageal reflux disease): Plan: Chronic, stable Continue PPI therapy Plan Pt seen and reviewed with collaborating physician, Dr. Stevenson. Plan of care discussed and as outlined above. Code status: full code DVT prophylaxis: Lovenox Admit to med surg for IV antibiotics, surgery evaluation, and pain management Romelia Parham PA-C History of Present Illness Chief Complaint: recurrent abdominal pain Primary Care Provider: Benton Rivas MD This is a 43 y/o male with ulcerative colitis, recurrent diverticulitis, asthma, and GERD who presents to the ED with recurrent abdominal pain. Pt was admitted to [facility] 03/03-03/05/24 for acute sigmoid diverticulitis. He improved with conservative management and was discharged home on Augmentin, which he was to finish today. Overall, felt he was doing well until last evening when he developed recurrent pain in the LLQ and left groin area. Describes pain as sharp but constant. Kept him up most of the night. Associated nausea but no vomiting. Denies fevers, chills, sweats. Appetite has been fair since d/c 03/05/24. Bowel movements were initially loose but are now more formed. Denies melena or hematochezia. Has not taken anything for the pain. This is his fourth episode of diverticulitis within the past 1-2 years. He did seen colorectal surgery in Sep 2023 but the preference was to hold off on surgical intervention, particularly with his known UC. His last colonoscopy was 09/21/22 - normal examined ileum, cecum, ascending colon, transverse colon, descending colon, recto-sigmoid colon; one 2 mm rectal polyp; diverticulosis entire examined colon; non-bleeding external and internal hemorrhoids; no signs of active colitis. Allergies Allergy/AdvReac Type Severity Reaction Status Date / Time No Known Allergies Allergy Unverified 03/13/24 08:29 Home Medications Medication Instructions Recorded Confirmed Type mesalamine 1.2 gram tablet,delayed 2.4 g PO HS 08/04/18 03/13/24 History release albuterol sulfate 90 mcg/actuation 2 puff inhalation QID PRN 10/04/18 03/13/24 History aerosol inhaler (ProAir HFA) Shortness Of Breath ascorbic acid (vitamin C) 500 mg 500 mg PO DAILY Cold Symptoms 10/04/18 03/13/24 History tablet (Vitamin C) dicyclomine 20 mg tablet 20 mg PO TID PRN Abdominal Pain 10/04/18 03/13/24 His tory mesalamine 1,000 mg rectal 1 g IL HS PRN Pain 10/04/18 03/13/24 History suppository omeprazole 20 mg tablet,delayed 20 mg PO DAILY Acid Reflux 10/04/18 03/13/24 History release lactobacillus combination no.4 3 3,000 mmu cells PO DAILY 2 weeks 03/05/24 03/13/24 Rx billion cell capsule (Probiotic) #14 caps amoxicillin 875 mg-potassium 1 tab PO BID 03/13/24 03/13/24 History clavulanate 125 mg tablet Past Med/Surg History Problem List (Updated 03/13/24 @ 12:51 by Steffanie Parham PA-C) Acute diverticulitis (Acute) GERD (gastroesophageal reflux disease) Asthma allergy induced, inhaler prn Abdominal pain, acute, left lower quadrant (Acute) Diverticulitis (Acute) Ulcerative colitis (Acute) Surgical History History of arthroscopy of left knee Hx of vasectomy History of colonoscopy History of tooth extraction Family History Other No family history of adverse response to anesthesia Social History Smoking Status: Current some day smoker Tobacco Type: Cigars Second Hand Exposure: No; Do You Dip or Chew Tobacco: No; Tobacco Cessation Education Requested by Patient: No Hx Alcohol Use: Yes Alcohol type: beer Hx Substance Use: No Preferred Language: Slovenian Communication Ability: Effective Social Sciences Professor Required: No Beliefs That Will Affect Care: None Current Living Situation: Spouse Current Living Situation Comment: Lives with and 2 kids Other Information That Helps Us Care for You: No Feels Safe at Home: Yes Safety Concerns: Feels Safe At This Time Assistive Devices: None Review of Systems Review of Systems: All systems reviewed & are unremarkable except as noted in HPI & below Constitutional: no fever, no chills and no sweats Ear, Nose, Mouth, Throat: no nasal congestion and no sore throat Respiratory: no cough and no dyspnea Cardiovascular: no chest pain and no palpitations Gastrointestinal: as per Subjective / HPI; no blood in stools and no melena Genitourinary: no dysuria or no hematuria Integumentary: no rash and no yellowing of the skin Neurologic: no dizziness and no syncope Physical Exam Physical Exam: General: awake, alert, NAD HEENT: no scleral icterus, moist oral mucosa Neck: supple, trachea midline Heart: RRR, no M/G/R Lungs: CTA bilaterally without W/R/R Abdomen: soft, +BS, mild LLQ and left flank tenderness, no guarding or rebound Extremities: no pedal edema, distal pulses intact and equal Skin: warm, dry, no jaundice Neurologic: Ox3, no confusion or dysarthria, moving all extremities Results & Data Results & Data Vital Signs (Past 12 Hours) Vital Signs Temp Pulse Pulse Resp BP BP Pulse Ox 03/13/24 10:04 77 20 134/83 98 03/13/24 07:21 36.6 C 72 18 133/92 100 O2 Del Method 03/13/24 10:04 Room Air 03/13/24 07:21 Room Air Laboratory Results Lab Results 03/13/24 03/13/24 Range/Units 07:55 10:01 WBC 8.13 (4.8-10.8) K/ul RBC 5.09 (4.70-6.10) M/uL Hgb 15.1 (14.0-18.0) g/dl Hct 43.7 (42.0-52.0) % MCV 85.9 (80.0-100.0) fL MCH 29.7 (25.0-34.0) pg MCHC 34.6 (32.0-36.0) g/dL RDW Std Deviation 35.8 L (36.4-46.3) fL RDW Coeff of Yusuf 11.5 (11.5-14.5) % Plt Count 320 (130-400) K/uL MPV 9.7 (9.4-12.4) fL Immature Gran % (Auto) 0.4 % Neut % (Auto) 78.4 % Lymph % (Auto) 12.9 % [place] % (Auto) 6.2 % Eos % (Auto) 1.7 % Baso % (Auto) 0.4 % Neut # (Auto) 6.38 (1.40-6.50) K/uL Lymph # (Auto) 1.05 L (1.20-3.40) K/uL [place] # (Auto) 0.50 (0.11-0.59) K/uL Eos # (Auto) 0.14 (0.00-0.50) K/uL Baso # (Auto) 0.03 (0.00-0.20) K/uL Immature Gran # (Auto) 0.03 (0.01-0.20) K/uL Sodium 138 (136-145) mmol/L Potassium 4.2 (3.5-5.1) mmol/L Chloride 105 (98-107) mmol/L Carbon Dioxide 26 (21-32) mmol/L Anion Gap 7 (3-11) BUN 18 (6-23) mg/dl Creatinine 1.13 (0.6-1.4) mg/dl Est Cr Clr Drug Dosing 100.7 ml/min Est GFR ( Amer) 91.8 ml/min Est GFR (Non-Af Amer) 79.2 ml/min BUN/Creatinine Ratio 15.9 (10-20) Glucose 101 H (70-99(Fasting)) mg/dl Calcium 9.2 (8.6-10.3) mg/dl Total Bilirubin 0.5 (0.2-1.0) mg/dl AST 15 (13-39) U/L ALT 22 (7-52) U/L Alkaline Phosphatase 64 (34-104) U/L Total Protein 7.5 (6.0-8.3) gm/dl Albumin 4.4 (3.4-5.0) gm/dl Globulin 3.1 (2.5-4.0) gm/dl Albumin/Globulin Ratio 1.4 (0.9-2) Lipase 18 (11-82) U/L Urine Color Yellow Urine Appearance Clear (Clear) Urine pH 6.5 (4.5-7.5) Ur Specific [place] 1.022 (1.000-1.030) Urine Protein Negative (Negative) Urine Glucose (UA) Negative (Negative) Urine Ketones Negative (Negative) Urine Blood Negative (Negative) Urine Nitrite Negative (Negative) Urine Bilirubin Negative (Negative) Urine Urobilinogen Negative (Negative) Ur Leukocyte Esterase Negative (Negative) Diagnostic Findings Abdomen/Pelvis CT 03/13/24 07:[address] WITH IV CONTRAST CT DOSE: 1408.82 mGy.cm HISTORY: Acute generalized abdominal pain LOWER ABD PAIN, DX WITH DIVERTICULITIS LAST WEEK TECHNIQUE: Multiaxial CT images of the abdomen and pelvis were performed following the IV administration of 94 cc of Optiray, A dose lowering technique was utilized adhering to the principles of ALARA. COMPARISON STUDY: Outside institution CT images without report dated 03/03/2024. FINDINGS: The lung bases are generally clear. No pneumatosis or portal venous gas identified. Spleen is mildly enlarged at 14.5 cm. Unremarkable pancreas, gallbladder and adrenal glands. 1.7 cm left hepatic lobe cyst. Patency of the intrahepatic and portal veins. 11 mm right renal cyst. No hydronephrosis. Unremarkable urinary bladder. Probable small fat filled left inguinal hernia. No abdominal aortic aneurysm or lymphadenopathy. There is no bowel obstruction. Colonic diverticulosis. Mild acute diverticulitis of the mid sigmoid colon with decreased inflammatory stranding and bowel wall thickening compared to the prior study. However there is a collection of extraluminal air within the sigmoid mesocolon on image 307 series 3 measuring up to approximately 3 cm in length. No drainable fluid collections are seen. Prior exam is focal wall thickening with adjacent inflammatory stranding adjacent to a contrast-filled diverticulum of the descending colon on image 257 series 3. Mild to moderate colonic fecal retention. Normal appendix. Unremarkable soft tissues. 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 No acute fracture. IMPRESSION: 1. New from the 03/03/2024 exam is acute diverticulitis of the mid to distal descending colon without abscess. 2. Resolving acute sigmoid diverticulitis has improved from the prior exam, however there is now extraluminal air within the sigmoid mesocolon compatible with a contained perforation. 3. No drainable fluid collections. 4. No bowel obstruction. 5. Mild splenomegaly. ACT 112: Negative or not required by law. The above report was generated using voice recognition software. It may contain grammatical, syntax or spelling errors. Electronically signed by: Kemar Martínez M.D. 03/13/2024 9:50 AM Medications Administered Piperacillin Sod/Tazobactam Sod (Zosyn) 4.5 gm in 100 mls @ 200 mls/hr IV NOW ONE Stop: 03/13/24 10:25 Last Admin: 03/13/24 10:03 Dose: 200 mls/hr Documented By: NAA Discontinued Medications Sodium Chloride (Nss) 1,000 mls @ 999 mls/hr IV .Q1H1M COLLEEN Stop: 03/13/24 08:37 Last Infusion: 03/13/24 08:54 Dose: Infused Documented By: Admin: 03/13/24 07:53 Dose: 999 mls/hr Documented By: NAA Ioversol (Optiray 320 100ml) 94 ml IV ONCE ONE Stop: 03/13/24 08:54 Last Admin: 03/13/24 08:53 Dose: 94 ml Documented By: JAVON Ketorolac Tromethamine (Ketorolac Tromethamine 15 Mg/Ml Vial) 15 mg IV NOW STA Stop: 03/13/24 10:16 Last Admin: 03/13/24 10:22 Dose: 15 mg Documented By: NAA Morphine Sulfate (Morphine Sulfate 4 Mg/Ml 1 Ml Carp\Vial) 4 mg IV NOW STA Stop: 03/13/24 07:36 Last Admin: 03/13/24 07:54 Dose: 4 mg Documented By: NAA Ondansetron HCl (Ondansetron Inj 2 Mg/Ml 2 Ml Vial) 4 mg IV NOW STA Stop: 03/13/24 07:36 Last Admin: 03/13/24 07:53 Dose: 4 mg Documented By: NAA Supervising Physician Co-Signing Physician Notes Attending addendum: The patient was seen and examined in emergency room in presence of the Significant history of ulcerative colitis and also recurrent diverticulitis Has been on Augmentin for a recent attack of diverticulitis Did not improve his pain and was brought in the emergency room today On examination Lying in bed without any apparent distress Hemodynamically stable without any fever Chest was clear to examined bilaterally Heart-S1-S2, regular Abdomen-soft, tender left lower quadrant with mild guarding no rigidity, bowel sound present Extremities-negative for any edema 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-alert, awake and oriented x 3 and no focal sensory or motor deficit appreciated His admission labs and imaging studies reviewed CT abdomen and pelvis is showing improving of sigmoid diverticulitis but with contained perforation without any abscess History of ulcerative colitis may be the cause for recurrent diverticulitis Does not have any acute exacerbation of ulcerative colitis Will need GI follow-up as an outpatient Started on intravenous Zosyn and surgery consultation will be taken Agree and take full responsibility of the assessment and plan as outlined above by MARYA Pritchett DR (2) Ulcerative colitis Digestive disease complication type: without complication Ulcerative colitis location: ulcerative proctitis Qualified Code(s): K51.20 - Ulcerative (chronic) proctitis without complications (3) GERD (gastroesophageal reflux disease) Esophagitis presence: without esophagitis Qualified Code(s): K21.9 - Gastro- esophageal reflux disease without esophagitis
[2024-03-13] MEDS ORDERED: KETOROLAC TROMETHAMINE 15 MG/ML VIAL IV PRN (11:30)
[2024-03-13] MEDS ORDERED: ACETAMINOPHEN 325 MG TAB PO PRN (12:24)
[2024-03-13] MEDS ORDERED: ONDANSETRON INJ 2 MG/ML 2 ML VIAL IV PRN (12:24)
[2024-03-13] MEDS: MoRPHine SULFATE 4 MG/ML 1 ML CARP\\VIAL IV PRN (13:08)
[2024-03-13] MEDS: PANTOprazole 40 MG in SYRINGE 0 ML IV SCH (13:45)
[2024-03-13] MEDS: PIPERACILLIN/TAZOBACTAM 4.5 GM in DEXTROSE 5% MINI-B 100 ML IV SCH (13:46)
--- NOTE | 2024-03-13 14:16 | Surgery Consultation ---
Date of Consultation March 13, 2024 Assessment & Plan (1) Acute diverticulitis: I reviewed the CT scan. While he does have a microperforation which is new however the overall amount of inflammation is somewhat improved. He also does not have a leukocytosis. I suspect the acute pain was when the perforation oc curred. No indication for emergent or urgent surgical intervention. We will follow along. Continue conservative management with n.p.o. and IV antibiotics as well as fluids. Once this acute flare resoves I am going to recommend he go to a tertiary center to see colorectal surgeon to consider total colectomy to resolve both the diverticular disease as well as the ulcerative colitis. We will continue to follow along while he is in the hospital. (2) Ulcerative colitis: History of Present Illness Attending Physician: Nancy Stevenson MD History of Present Illness Titi is a pleasant 43-year-old male who was admitted for diverticulitis with microperforation. He was just discharged from the hospital about a week ago for diverticulitis. He has had several episodes in the past about 4 total although this is the first time he has had to be admitted to the hospital. He also has ulcerative colitis which is typically under good control. Allergies Allergy/AdvReac Type Severity Reaction Status Date / Time No Known Allergies Allergy Unverified 03/13/24 08:29 Home Medications Medication Instructions Recorded Confirmed Type mesalamine 1.2 gram tablet,delayed 2.4 g PO HS 08/04/18 03/13/24 History release albuterol sulfate 90 mcg/actuation 2 puff inhalation QID PRN 10/04/18 03/13/24 History aerosol inhaler (ProAir HFA) Shortness Of Breath ascorbic acid (vitamin C) 500 mg 500 mg PO DAILY Cold Symptoms 10/04/18 03/13/24 History tablet (Vitamin C) dicyclomine 20 mg tablet 20 mg PO TID PRN Abdominal Pain 10/04/18 03/13/24 History mesalamine 1,000 mg rectal 1 g [place] HS PRN Pain 10/04/18 03/13/24 History suppository omeprazole 20 mg tablet,delayed 20 mg PO DAILY Acid Reflux 10/04/18 03/13/24 History release lactobacillus combination no.4 3 3,000 mmu cells PO DAILY 2 weeks 03/05/24 03/13/24 Rx billion cell capsule (Probiotic) #14 caps amoxicillin 875 mg-potassium 1 tab PO BID 03/13/24 03/13/24 History clavulanate 125 mg tablet Patient History Surgical History History of arthroscopy of left knee Hx of vasectomy History of colonoscopy History of tooth extraction Family History Other No family history of adverse response to anesthesia Social History Smoking Status: Current some day smoker Tobacco Type: Cigars Second Hand Exposure: No; Do You Dip or Chew Tobacco: No; Tobacco Cessation Education Requested by Patient: No Hx Alcohol Use: Yes Alcohol type: beer Hx Substance Use: No Preferred Language: Bengali Communication Ability: Effective Crm Administrator Required: No Beliefs That Will Affect Care: None Current Living Situation: Spouse Current Living Situation Comment: Lives with and 2 kids Other Information That Helps Us Care for You: No Feels Safe at Home: Yes Safety Concerns: Feels Safe At This Time Assistive Devices: None Review of Systems Review of Systems: All systems reviewed & are unremarkable except as noted in HPI & below Physical Exam Constitutional: WD/WN, vitals as above no acute distress and not ill appearing Eyes: PERRL, conjunctivae normal, anicteric sclerae EOM intact bilaterally ENMT: external ear and nose normal, oropharynx normal Ears: no hearing impairment Neck: trachea midline, no thyromegaly Respiratory: normal respiratory effort; no respiratory distress and does not use accessory muscles Cardiovascular: Rate/Rhythm: regular rate and regular rhythm Gastrointestinal (Abdomen): Soft. Positive left lower quadrant and suprapubic tenderness. No peritonitis. Skin: no rashes, warm and dry Psychiatric: Orientation: alert, oriented x 3 and cooperative Results & Data Vital Signs (Past 12 Hours) Vital Signs Temp Pulse Pulse Resp BP BP Pulse Ox 03/13/24 12:31 36.4 C L 65 16 131/82 96 03/13/24 12:02 60 15 113/71 96 03/13/24 10:04 77 20 134/83 98 03/13/24 07:21 36.6 C 72 18 133/92 100 O2 Del Method 03/13/24 12:31 Room Air 03/13/24 12:02 Room Air 03/13/24 10:04 Room Air 03/13/24 07:21 Room Air PG Care Time/CCT Total # of Minutes Spent Total Time Spent with Patient: Total time spent is greater than 50% in coordination of care (as documented) at patient's floor/unit and/or counseling patient: Coding Level of Care Code 31161 IN/OBS CONSULT LVL 3,45M Diagnoses Acute diverticulitis K57.92 Ulcerative proctitis without complication K51.20 Digestive disease complication type: without complication Ulcerative colitis location: ulcerative proctitis (2) Ulcerative colitis Digestive disease complication type: without complication Ulcerative colitis location: ulcerative proctitis Qualified Code(s): K51.20 - Ulcerative (chronic) proctitis without complications
[2024-03-13] MEDS ORDERED: MESALAMINE 1.2 GM TABDR PO SCH (21:00)
[2024-03-14] MEDS: ENOXAPARIN INJ 40 MG/0.4 ML SYR SQ SCH (07:55)
[2024-03-14] MEDS: MESALAMINE 1.2 GM TABDR PO SCH (07:57)
[2024-03-14 08:07] LABS: Basophils # (auto) 0.03 K/uL (0.00-0.20); Basophils % (auto) 0.6 %; Eosinophils # (auto) 0.11 K/uL (0.00-0.50); Eosinophils % (auto) 2.2 %; Hematocrit (blood only) 39.5 % (42.0-52.0); Hemoglobin 13.4 g/dl (14.0-18.0); Immature Granulocytes # (auto) 0.02 K/uL (0.01-0.20); Immature Granulocytes % (auto) 0.4 %; Lymphocytes # (auto) 0.97 K/uL (1.20-3.40); Lymphocytes % (auto) 19.5 %; Mean Corpuscular Hemoglobin 29.4 pg (25.0-34.0); Mean Corpuscular Hgb Conc 33.9 g/dL (32.0-36.0); Mean Corpuscular Volume 86.6 fL (80.0-100.0); Mean Platelet Volume 9.7 fL (9.4-12.4); Monocytes # (auto) 0.38 K/uL (0.11-0.59); Monocytes % (auto) 7.6 %; Neutrophils # (auto) 3.47 K/uL (1.40-6.50); Neutrophils % (auto) 69.7 %; Platelet Count 250 K/uL (130-400); RDW Coefficient of Variation 11.7 % (11.5-14.5); RDW Standard Deviation 37.1 fL (36.4-46.3); Red Blood Count 4.56 M/uL (4.70-6.10); White Blood Count 4.98 K/ul (4.8-10.8)
[2024-03-14 08:29] LABS: BUN Creatinine Ratio 8.2 (10-20); Calcium 8.6 mg/dl (8.6-10.3); Creatinine Clr Calc Pharmacy 93.6 ml/min; Est GFR (African American) 83.6 ml/min; Est GFR (Non-African American) 72.2 ml/min; Potassium 4.4 mmol/L (3.5-5.1)
--- NOTE | 2024-03-14 12:03 | Surgery Progress Note ---
Date of Service March 14, 2024 Assessment & Plan (1) Acute diverticulitis: Plan: pt here w/ acute diverticulitis with concern for microperf wbc 4.9. vitals stable and pt afebrile some mild improvement in pain. still ttp in llq continue iv abx would keep sips/ice for now will need outpt follow up with a colorectal surgeon given history of ulcerative colitis as above. feeling about the same.... continue NPO for now. IV antibiotics. Admission and Anticipated Discharge Date Admission Date: March 13, 2024 Subjective Patient reports feeling a bit better than yesterday, but has required IV pain meds intermittently as he feels it wearing off. No nausea. Passing some flatus. No bm Physical Exam Physical Exam: awake/alert, no distress Gastrointestinal (Abdomen): Inspection/Auscultation: abdomen not distended Percussion/Palpation: + abdomen tender (ttp llq) and abdomen soft Results & Data Vital Signs (Past 12 Hours) Vital Signs Temp Pulse Resp BP Pulse Ox O2 Del Method 03/14/24 07:32 97.3 F L 63 18 118/77 96 Room Air PG Care Time/CCT Total # of Minutes Spent Total Time Spent with Patient: Total time spent is greater than 50% in coordination of care (as documented) at patient's floor/unit and/or counseling patient: Coding Level of Care Code 84353 SUB INP/OBS CARE 25MIN Diagnoses Acute diverticulitis K57.92
--- NOTE | 2024-03-14 12:12 | Hospitalist Progress Note ---
Date of Service March 14, 2024 Assessment & Plan (1) Acute diverticulitis: (2) Ulcerative colitis: (3) GERD (gastroesophageal reflux disease): Plan Mr. Mata is a 43 y/o male with ulcerative colitis, recurrent diverticulitis, asthma, and GERD who is admitted for evaluation and management of acute diverticulitis. Pt was recently admitted for acute sigmoid diverticulitis in 02/2024 and was discharged on Augmentin, which he was scheduled to complete today. This is his fourth episode of diverticulitis. Work-up in the ED showed improvement in the sigmoid diverticulitis although now noted to have a contained perforation and with new acute descending colon diverticulitis. #Acute complicated diverticulitis -Imaging w/ contained microperforation, resolving sigmoid diverticulitis, acute descending colonic diverticulitis - Continue IV Zosyn - Continue NPO for bowel rest - Surgery consult -Will need OP follow up with CRS given hx of UC - Repat am labs -Contiue Pain control (IV Toradol, IV morphine) and anti-emetics (IV Zofran) Surgical Technician consult to discuss low fiber diet #Ulcerative colitis: Chronic, stable Continue to f/u with GI outpatient Continue mesalamine pr # GERD (gastroesophageal reflux disease): Chronic, stable Continue PPI therapy #Asthma chronic stable DVT lovenox Dispo contingent on resolution of symptoms and advancement of diet, 1-2 days Admission and Anticipated Discharge Date Admission Date: March 13, 2024 Subjective Patient reports marginal improvement Pain predominately in central lower quadrants Denies nausea/vomiting other new concerns Physical Exam Constitutional: WD/WN, vitals as above Respiratory: normal respiratory effort, lungs clear to auscultation Cardiovascular: RRR, no murmur, no edema Gastrointestinal (Abdomen): TTP lower quadrants Results & Data Results & Data Vital Signs (Past 12 Hours) Vital Signs Temp Pulse Resp BP Pulse Ox O2 Del Method 03/14/24 07:32 36.3 C L 63 18 118/77 96 Room Air Laboratory Results Short CBC 03/14/24 Range/Units 07:21 WBC 4.98 (4.8-10.8) K/ul Hgb 13.4 L (14.0-18.0) g/dl Hct 39.5 L (42.0-52.0) % Plt Count 250 (130-400) K/uL BMP 03/14/24 07:21 Sodium 140 Potassium 4.4 Chloride 109 H Carbon Dioxide 26 BUN 10 Creatinine 1.22 Glucose 95 Calcium 8.6 Medications Administered Home Medications Medication Instructions Recorded Confirmed Last Taken mesalamine 1.2 gram tablet,delayed 2.4 g PO HS 08/04/18 03/13/24 03/12/24 release albuterol sulfate 90 mcg/actuation 2 puff inhalation QID PRN 10/04/18 03/13/24 03/13/24 aerosol inhaler (ProAir HFA) Shortness Of Breath ascorbic acid (vitamin C) 500 mg 500 mg PO DAILY Cold Symptoms 10/04/18 03/13/24 03/12/24 tablet (Vitamin C) dicyclomine 20 mg tablet 20 mg PO TID PRN Abdominal Pain 10/04/18 03/13/24 03/12/24 mesalamine 1,000 mg rectal 1 g MT HS PRN Pain 10/04/18 03/13/24 Unknown suppository omeprazole 20 mg tablet,delayed 20 mg PO DAILY Acid Reflux 10/04/18 03/13/24 03/12/24 release lactobacillus combination no.4 3 3,000 mmu cells PO DAILY 2 weeks 03/05/24 03/13/24 03/12/24 billion cell capsule (Probiotic) #14 caps amoxicillin 875 mg-potassium 1 tab PO BID 03/13/24 03/13/24 03/12/24 clavulanate 125 mg tablet Active Medications Generic Name Dose Route Start Last Admin Trade Name Freq PRN Reason Stop Dose Admin Enoxaparin Sodium 40 mg 03/14/24 09:00 03/14/24 07:55 Enoxaparin Inj 40 Mg/0.4 Ml Syr SQ 04/13/24 08:59 40 mg QAM COLLEEN Administration Piperacillin Sod/Tazobactam 100 mls @ 25 mls/hr 03/13/24 14:30 03/14/24 09:46 Sod 4.5 gm/ Dextrose IV 03/23/24 14:29 Infused Q8H COLLEEN Infusion Protocol Sodium Chloride 1,000 mls @ 100 mls/hr 03/13/24 11:45 03/14/24 07:54 Nss IV 04/12/24 11:44 100 mls/hr .Q10H COLLEEN Administration Pantoprazole Sodium 40 mg/ 10 mls @ 5 mls/min 03/13/24 13:00 03/14/24 11:35 Syringe IV 04/12/24 12:59 5 mls/min DAILY@1100 COLLEEN Administration Mesalamine 2.4 gm 03/14/24 09:00 03/14/24 07:57 Mesalamine 1.2 Gm Tabdr PO 04/13/24 08:59 Not Given QAM COLLEEN Miscellaneous 1 each 03/13/24 16:00 03/14/24 07:[address] Tab: Order Awaiting Action N/A 04/12/24 15:59 Not Given QS COLLEEN Morphine Sulfate 3 mg 03/13/24 11:30 03/14/24 10:19 Morphine Sulfate 4 Mg/Ml 1 Ml Carp\Vial IV 03/27/24 11:29 3 mg Q4H PRN Administration Mod-Sev Pain (Scale 4-10) (2) Ulcerative colitis Digestive disease complication type: without complication Ulcerative colitis location: ulcerative proctitis Qualified Code(s): K51.20 - Ulcerative (chronic) proctitis without complications (3) GERD (gastroesophageal reflux disease) Esophagitis presence: without esophagitis Qualified Code(s): K21.9 - Gastro- esophageal reflux disease without esophagitis
[2024-03-15 06:29] LABS: Hematocrit (blood only) 39.2 % (42.0-52.0); Hemoglobin 13.6 g/dl (14.0-18.0); Mean Corpuscular Hemoglobin 29.7 pg (25.0-34.0); Mean Corpuscular Hgb Conc 34.7 g/dL (32.0-36.0); Mean Corpuscular Volume 85.6 fL (80.0-100.0); Mean Platelet Volume 9.6 fL (9.4-12.4); Platelet Count 242 K/uL (130-400); RDW Coefficient of Variation 11.5 % (11.5-14.5); RDW Standard Deviation 35.4 fL (36.4-46.3); Red Blood Count 4.58 M/uL (4.70-6.10); White Blood Count 3.98 K/ul (4.8-10.8)
[2024-03-15 06:43] LABS: BUN Creatinine Ratio 6.4 (10-20); Calcium 8.7 mg/dl (8.6-10.3); Creatinine Clr Calc Pharmacy 91.3 ml/min; Est GFR (African American) 81.2 ml/min; Est GFR (Non-African American) 70.1 ml/min; Magnesium 1.9 mg/dl (1.7-2.4); Phosphorus 3.6 mg/dl (2.5-4.9); Potassium 4.4 mmol/L (3.5-5.1)
--- NOTE | 2024-03-15 09:49 | Surgery Progress Note ---
Date of Service March 15, 2024 Assessment & Plan (1) Acute diverticulitis: Plan: pt here w/ acute diverticulitis with concern for microperf vitals stable still ttp in llq continue iv abx will advance to clear liquid, instructed to go slow will need outpt follow up with a colorectal surgeon given history of ulcerative colitis pt seen and examined with Dr. Trivedi as above. slowly improving. will try clears. still mild lower abd tenderness. no urgent indication for surgical intervention Admission and Anticipated Discharge Date Admission Date: March 13, 2024 Subjective Pt reports tenderness LLQ no n/v Review of Systems Gastrointestinal: + abdominal pain; no nausea and no vomit ing Physical Exam Constitutional: well developed, cooperative and comfortable; no acute distress Respiratory: normal respiratory effort and able to speak in complete sentences; no respiratory distress Gastrointestinal (Abdomen): Inspection/Auscultation: abdomen normal to inspection; abdomen not distended Percussion/Palpation: + abdomen tender (LLQ) and abdomen soft Results & Data Vital Signs (Past 12 Hours) Vital Signs Temp Pulse Resp BP Pulse Ox O2 Del Method 03/15/24 06:57 97.7 F 62 14 141/90 H 97 Room Air PG Care Time/CCT Total # of Minutes Spent Total Time Spent with Patient: Total time spent is greater than 50% in coordination of care (as documented) at patient's floor/unit and/or counseling patient: Coding Level of Care Code 69451 SUB INP/OBS CARE 25MIN Diagnoses Acute diverticulitis K57.92
[2024-03-15] MEDS: LACTATED RINGER'S 1,000 ML IV ONE (10:06)
--- NOTE | 2024-03-15 17:37 | Hospitalist Progress Note ---
Date of Service March 15, 2024 Assessment & Plan (1) Acute diverticulitis: (2) Ulcerative colitis: (3) GERD (gastroesophageal reflux disease): Plan Mr. Mata is a 43 y/o male with ulcerative colitis, recurrent diverticulitis, asthma, and GERD who is admitted for evaluation and management of acute diverticulitis. As per prior provider Pt was recently admitted for acute sigmoid diverticulitis in 02/2024 and was discharged on Augmentin, which he was scheduled to complete today. This is his fourth episode of diverticulitis. Work-up in the ED showed improvement in the sigmoid diverticulitis although now noted to have a contained perforation and with new acute descending colon diverticulitis. Acute complicated diverticulitis with contained microperforation --CT ABD:New from the 03/03/2024 exam is acute diverticulitis of the mid to distal descending colon without abscess. Resolving acute sigmoid diverticulitis has improved from the prior exam, however there is now extraluminal air within the sigmoid mesocolon compatible with a contained perforation. No drainable fluid collections. No bowel obstruction. Mild splenomegaly. -- Continue IV Zosyn, IV fluids Pain control Appreciate surgery input Patient will need outpatient follow-up with colorectal surgery given history of ulcerative colitis Clinically improving Ulcerative colitis: Chronic, stable Continue to f/u with GI outpatient Continue mesalamine pr GERD Chronic, stable Continue PPI Asthma chronic stable DVT Px: Lovenox SQ Admission and Anticipated Discharge Date Admission Date: March 13, 2024 Subjective Patient is seen and examined at bedside Abdominal pain improving Offers no new complaints Tolerating current diet Denies any chest pain, dyspnea, nausea, vomiting Review of Systems Review of Systems: All systems reviewed & are unremarkable except as noted in Subjective Physical Exam Physical Exam: Physical Exam: Vitals signs as noted above General Appearance:Moderately built and nourished, no apparent distress Head: normocephalic, Atraumatic Eyes: normal inspection, EOMI Neck: supple, Trachea midline Respiratory/Chest: Normal breath sounds, CTA, No accessory muscle use Cardiovascular: S1, S2, No murmur Abdomen/GI:Soft, LLQ tender, Bowel sounds present Extremities/Musculoskeletal:normal inspection, no edema Neurologic/Psych:AAOX3, grossly no focal neurological deficits Skin: normal color, warm Results & Data Results & Data Vital Signs (Past 12 Hours) Vital Signs Temp Pulse Pulse Resp BP Pulse Ox O2 Del Method 03/15/24 14:33 36.5 C 65 16 139/89 96 Room Air 03/15/24 06:57 36.5 C 62 14 141/90 H 97 Room Air Laboratory Results Short CBC 03/15/24 Range/Units 06:03 WBC 3.98 L (4.8-10.8) K/ul Hgb 13.6 L (14.0-18.0) g/dl Hct 39.2 L (42.0-52.0) % Plt Count 242 (130-400) K/uL BMP 03/15/24 06:03 Sodium 141 Potassium 4.4 Chloride 109 H Carbon Dioxide 27 BUN 8 Creatinine 1.25 Glucose 89 Calcium 8.7 (2) Ulcerative colitis Digestive disease complication type: without complication Ulcerative colitis location: ulcerative proctitis Qualified Code(s): K51.20 - Ulcerative (chronic) proctitis without complications (3) GERD (gastroesophageal reflux disease) Esophagitis presence: without esophagitis Qualified Code(s): K21.9 - Gastro- esophageal reflux disease without esophagitis
[2024-03-16 07:54] LABS: BUN Creatinine Ratio 5.8 (10-20); Calcium 9.1 mg/dl (8.6-10.3); Creatinine Clr Calc Pharmacy 82.1 ml/min; Est GFR (African American) 71.4 ml/min; Est GFR (Non-African American) 61.6 ml/min; Potassium 3.8 mmol/L (3.5-5.1)
--- NOTE | 2024-03-16 08:48 | Surgery Progress Note ---
Date of Service March 16, 2024 Assessment & Plan (1) Acute diverticulitis: Plan: Pt with history of ulcerative colitis here w/ diverticulitis with microperforation WBC has been normal. Vitals stable. Pt Afebrile Abdomen soft. non distended. LLQ tenderness much improved Will adv to fulls, if goes well can consider low fiber later Will need to complete course of po abx upon dispo, continue IV abx while in house Recommend pt f/u with a colorectal surgeon as outpt given his history of UC as above. improving. no surgical intervention indicated currently. recommend f/u with colorectal surgeon as out-pt. call if any questions/concerns. Admission and Anticipated Discharge Date Admission Date: March 13, 2024 Subjective Patient reports feeling better. Abdominal pain improved. Tolerating clears no nausea/vomiting. + Flatus Physical Exam Physical Exam: awake/alert, no distress Gastrointestinal (Abdomen): Inspection/Auscultation: abdomen not distended Percussion/Palpation: abdomen soft; abdomen nontender Results & Data Vital Signs (Past 12 Hours) Vital Signs Temp Pulse Pulse Resp BP Pulse Ox O2 Del Method 03/16/24 06:59 97.9 F 60 16 155/98 H 97 Room Air 03/15/24 22:10 98.2 F 60 18 134/88 97 Room Air PG Care Time/CCT Total # of Minutes Spent Total Time Spent with Patient: Total time spent is greater than 50% in coordination of care (as documented) at patient's floor/unit and/or counseling patient: Coding Level of Care Code 53809 SUB INP/OBS CARE 25MIN Diagnoses Acute diverticulitis K57.92
[2024-03-16] MEDS ORDERED: MoRPHine SULFATE 2 MG/ML CARP IV PRN (13:07)
--- NOTE | 2024-03-16 13:53 | Hospitalist Progress Note ---
Date of Service March 16, 2024 Assessment & Plan (1) Acute diverticulitis: (2) Ulcerative colitis: (3) GERD (gastroesophageal reflux disease): Plan Mr. Mata is a 43 y/o male with ulcerative colitis, recurrent diverticulitis, asthma, and GERD who is admitted for evaluation and management of acute diverticulitis. As per prior provider Pt was recently admitted for acute sigmoid diverticulitis in 02/2024 and was discharged on Augmentin, which he was scheduled to complete today. This is his fourth episode of diverticulitis. Work-up in the ED showed improvement in the sigmoid diverticulitis although now noted to have a contained perforation and with new acute descending colon diverticulitis. Acute complicated diverticulitis with contained microperforation --CT ABD:New from the 03/03/2024 exam is acute diverticulitis of the mid to distal descending colon without abscess. Resolving acute sigmoid diverticulitis has improved from the prior exam, however there is now extraluminal air within the sigmoid mesocolon compatible with a contained perforation. No drainable fluid collections. No bowel obstruction. Mild splenomegaly. --on IV Zosyn, IV fluids Pain control Appreciate surgery input Patient will need outpatient follow-up with colorectal surgery given history of ulcerative colitis Tolerated low fiber diet Transition to oral antibiotics on discharge Plan to discharge home today Ulcerative colitis: Chronic, stable Continue to f/u with GI outpatient Continue mesalamine GERD Chronic, stable Continue PPI Asthma chronic stable DVT Px: Lovenox SQ Admission and Anticipated Discharge Date Admission Date: March 13, 2024 Subjective Patient is seen and examined at bedside Abdominal pain resolved Denies any chest pain, dyspnea, nausea, vomiting Tolerated Low fiber diet Discussed with Surgery today Review of Systems Review of Systems: All systems reviewed & are unremarkable except as noted in Subjective Physical Exam Physical Exam: Physical Exam: Vitals signs as noted above General Appearance:Moderately built and nourished, no apparent distress Head: normocephalic, Atraumatic Eyes: normal inspection, EOMI Neck: supple, Trachea midline Respiratory/Chest: Normal breath sounds, CTA, No accessory muscle use Cardiovascular: S1, S2, No murmur Abdomen/GI:Soft, non tender, Bowel sounds present Extremities/Musculoskeletal:normal inspection, no edema Neurologic/Psych:AAOX3, grossly no focal neurological deficits Skin: normal color, warm Results & Data Results & Data Vital Signs (Past 12 Hours) Vital Signs Temp Pulse Resp BP Pulse Ox O2 Del Method 03/16/24 06:59 36.6 C 60 16 155/98 H 97 Room Air Laboratory Results BMP 03/16/24 07:08 Sodium 140 Potassium 3.8 Chloride 106 Carbon Dioxide 28 BUN 8 Creatinine 1.39 Glucose 86 Calcium 9.1 (2) Ulcerative colitis Digestive disease complication type: without complication Ulcerative colitis location: ulcerative proctitis Qualified Code(s): K51.20 - Ulcerative (chronic) proctitis without complications (3) GERD (gastroesophageal reflux disease) Esophagitis presence: without esophagitis Qualified Code(s): K21.9 - Gastro- esophageal reflux disease without esophagitis
--- NOTE | 2024-03-16 14:01 | Discharge Summary ---
Date of Service March 16, 2024 Admission HPI Per Admitting Provider This is a 43 y/o male with ulcerative colitis, recurrent diverticulitis, asthma, and GERD who presents to the ED with recurrent abdominal pain. Pt was admitted to [facility] 03/03-03/05/24 for acute sigmoid diverticulitis. He improved with conservative management and was discharged home on Augmentin, which he was to finish today. Overall, felt he was doing well until last evening when he developed recurrent pain in the LLQ and left groin area. Describes pain as sharp but constant. Kept him up most of the night. Associated nausea but no vomiting. Denies fevers, chills, sweats. Appetite has been fair since d/c 03/05/24. Bowel movements were initially loose but are now more formed. Denies melena or hematochezia. Has not taken anything for the pain. This is his fourth episode of diverticulitis within the past 1-2 years. He did seen colorectal surgery in Sep 2023 but the preference was to hold off on surgical intervention, particularly with his known UC. His last colonoscopy was 09/21/22 - normal examined ileum, cecum, ascending colon, transverse colon, descending colon, recto-sigmoid colon; one 2 mm rectal polyp; diverticulosis entire examined colon; non-bleeding external and internal hemorrhoids; no signs of active colitis. Admission Exam Per Admitting Provider General: awake, alert, NAD HEENT: no scleral icterus, moist oral mucosa Neck: supple, trachea midline Heart: RRR, no M/G/R Lungs: CTA bilaterally without W/R/R Abdomen: soft, +BS, mild LLQ and left flank tenderness, no guarding or rebound Extremities: no pedal edema, distal pulses intact and equal Skin: warm, dry, no jaundice Neurologic: Ox3, no confusion or dysarthria, moving all extremities Principal Diagnosis Acute complicated diverticulitis with contained microperforation Ulcerative colitis Discharge Data Allergies Allergy/AdvReac Type Severity Reaction Status Date / Time No Known Allergies Allergy Unverified 03/13/24 08:29 Consultations 03/13/24 10:14 ED Decision to Admit Stat 03/13/24 12:24 Consult General Surgery Routine Procedures Performed Laboratory Results WBC 3.98 K/ul (4.8-10.8) L 03/15/24 06:03 RBC 4.58 M/uL (4.70-6.10) L 03/15/24 06:03 Hgb 13.6 g/dl (14.0-18.0) L 03/15/24 06:03 Hct 39.2 % (42.0-52.0) L 03/15/24 06:03 MCV 85.6 fL (80.0-100.0) 03/15/24 06:03 MCH 29.7 pg (25.0-34.0) 03/15/24 06:03 MCHC 34.7 g/dL (32.0-36.0) 03/15/24 06:03 RDW Std Deviation 35.4 fL (36.4-46.3) L 03/15/24 06:03 RDW Coeff of Yusuf 11.5 % (11.5-14.5) 03/15/24 06:03 Plt Count 242 K/uL (130-400) 03/15/24 06:03 MPV 9.6 fL (9.4-12.4) 03/15/24 06:03 Immature Gran % (Auto) 0.4 % 03/14/24 07:21 Neut % (Auto) 69.7 % 03/14/24 07:21 Lymph % (Auto) 19.5 % 03/14/24 07:21 [place] % (Auto) 7.6 % 03/14/24 07:21 Eos % (Auto) 2.2 % 03/14/24 07:21 Baso % (Auto) 0.6 % 03/14/24 07:21 Neut # (Auto) 3.47 K/uL (1.40-6.50) 03/14/24 07:21 Lymph # (Auto) 0.97 K/uL (1.20-3.40) L 03/14/24 07:21 [place] # (Auto) 0.38 K/uL (0.11-0.59) 03/14/24 07:21 Eos # (Auto) 0.11 K/uL (0.00-0.50) 03/14/24 07:21 Baso # (Auto) 0.03 K/uL (0.00-0.20) 03/14/24 07:21 Immature Gran # (Auto) 0.02 K/uL (0.01-0.20) 03/14/24 07:21 Sodium 140 mmol/L (136-145) 03/16/24 07:08 Potassium 3.8 mmol/L (3.5-5.1) 03/16/24 07:08 Chloride 106 mmol/L (98-107) 03/16/24 07:08 Carbon Dioxide 28 mmol/L (21-32) 03/16/24 07:08 Anion Gap 6 (3-11) 03/16/24 07:08 BUN 8 mg/dl (6-23) 03/16/24 07:08 Creatinine 1.39 mg/dl (0.6-1.4) 03/16/24 07:08 Est Cr Clr Drug Dosing 82.1 ml/min 03/16/24 07:08 Est GFR ( Amer) 71.4 ml/min 03/16/24 07:08 Est GFR (Non-Af Amer) 61.6 ml/min 03/16/24 07:08 BUN/Creatinine Ratio 5.8 (10-20) L 03/16/24 07:08 Glucose 86 mg/dl (70-99(Fasting)) 03/16/24 07:08 Calcium 9.1 mg/dl (8.6-10.3) 03/16/24 07:08 Phosphorus 3.6 mg/dl (2.5-4.9) 03/15/24 06:03 Magnesium 1.9 mg/dl (1.7-2.4) 03/15/24 06:03 Total Bilirubin 0.5 mg/dl (0.2-1.0) 03/13/24 07:55 AST 15 U/L (13-39) 03/13/24 07:55 ALT 22 U/L (7-52) 03/13/24 07:55 Alkaline Phosphatase 64 U/L (34-104) 03/13/24 07:55 Total Protein 7.5 gm/dl (6.0-8.3) 03/13/24 07:55 Albumin 4.4 gm/dl (3.4-5.0) 03/13/24 07:55 Globulin 3.1 gm/dl (2.5-4.0) 03/13/24 07:55 Albumin/Globulin Ratio 1.4 (0.9-2) 03/13/24 07:55 Lipase 18 U/L (11-82) 03/13/24 07:55 Urine Color Yellow 03/13/24 10:01 Urine Appearance Clear (Clear) 03/13/24 10:01 Urine pH 6.5 (4.5-7.5) 03/13/24 10:01 Ur Specific [place] 1.022 (1.000-1.030) 03/13/24 10:01 Urine Protein Negative (Negative) 03/13/24 10:01 Urine Glucose (UA) Negative (Negative) 03/13/24 10:01 Urine Ketones Negative (Negative) 03/13/24 10:01 Urine Blood Negative (Negative) 03/13/24 10:01 Urine Nitrite Negative (Negative) 03/13/24 10:01 Urine Bilirubin Negative (Negative) 03/13/24 10:01 Urine Urobilinogen Negative (Negative) 03/13/24 10:01 Ur Leukocyte Esterase Negative (Negative) 03/13/24 10:01 Impressions Abdomen/Pelvis CT 03/13/24 07:[address] WITH IV CONTRAST CT DOSE: 1408.82 mGy.cm HISTORY: Acute generalized abdominal pain LOWER ABD PAIN, DX WITH DIVERTICULITIS LAST WEEK TECHNIQUE: Multiaxial CT images of the abdomen and pelvis were performed following the IV administration of 94 cc of Optiray, A dose lowering technique was utilized adhering to the principles of ALARA. COMPARISON STUDY: Outside institution CT images without report dated 03/03/2024. FINDINGS: The lung bases are generally clear. No pneumatosis or portal venous gas identified. Spleen is mildly enlarged at 14.5 cm. Unremarkable pancreas, gallbladder and adrenal glands. 1.7 cm left hepatic lobe cyst. Patency of the intrahepatic and portal veins. 11 mm right renal cyst. No hydronephrosis. Unremarkable urinary bladder. Probable small fat filled left inguinal hernia. No abdominal aortic aneurysm or lymphadenopathy. There is no bowel obstruction. Colonic diverticulosis. Mild acute diverticulitis of the mid sigmoid colon with decreased inflammatory stranding and bowel wall thickening compared to the prior study. However there is a collection of extraluminal air within the sigmoid mesocolon on image 307 series 3 measuring up to approximately 3 cm in length. No drainable fluid collections are seen. Prior exam is focal wall thickening with adjacent inflammatory stranding adjacent to a contrast-filled diverticulum of the descending colon on image 257 series 3. Mild to moderate colonic fecal retention. Normal appendix. Unremarkable soft tissues. 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 No acute fracture. IMPRESSION: 1. New from the 03/03/2024 exam is acute diverticulitis of the mid to distal descending colon without abscess. 2. Resolving acute sigmoid diverticulitis has improved from the prior exam, however there is now extraluminal air within the sigmoid mesocolon compatible with a contained perforation. 3. No drainable fluid collections. 4. No bowel obstruction. 5. Mild splenomegaly. ACT 112: Negative or not required by law. The above report was generated using voice recognition software. It may contain grammatical, syntax or spelling errors. Electronically signed by: Kemar Martínez M.D. 03/13/2024 9:50 AM Ordered Studies 03/13/24 07:30 CT abd pelvis IV con only Stat Hospital Course (1) Acute diverticulitis: (2) Ulcerative colitis: (3) GERD (gastroesophageal reflux disease): Plan Mr. Mata is a 43 y/o male with ulcerative colitis, recurrent diverticulitis, asthma, and GERD who is admitted for evaluation and management of acute diverticulitis. As per prior provider Pt was recently admitted for acute sigmoid diverticulitis in 02/2024 and was discharged on Augmentin, which he was scheduled to complete today. This is his fourth episode of diverticulitis. Work-up in the ED showed improvement in the sigmoid diverticulitis although now noted to have a contained perforation and with new acute descending colon diverticulitis. Acute complicated diverticulitis with contained microperforation --CT ABD:New from the 03/03/2024 exam is acute diverticulitis of the mid to distal descending colon without abscess. Resolving acute sigmoid diverticulitis has improved from the prior exam, however there is now extraluminal air within the sigmoid mesocolon compatible with a contained perforation. No drainable fluid collections. No bowel obstruction. Mild splenomegaly. --on IV Zosyn, IV fluids Pain control Appreciate surgery input Patient will need outpatient follow-up with colorectal surgery given history of ulcerative colitis Tolerated low fiber diet Transition to oral antibiotics on discharge Plan to discharge home today Ulcerative colitis: Chronic, stable Continue to f/u with GI outpatient Continue mesalamine GERD Chronic, stable Continue PPI Asthma chronic stable DVT Px: Lovenox SQ Total Time Total Time Spent Total Time Spent (In Minutes): 52 minutes Discharge Plan Discharge Items Patient Disposition: Home - Self-Care Reason For Visit: DIVERTICULITIS Discharge Diagnosis: Acute complicated diverticulitis with contained microperforation Ulcerative colitis Activity: Per Instructions section Exercise/Sports: Wait until after follow-up appointment Non-emergency contact: Primary Care Provider and Surgeon Call non-emergency contact if: you have any medication questions, your symptoms worsen, your pain is concerning for you and you have a fever Follow-up/Referrals: Benton Rivas MD [Primary Care Provider] - (Date & Time 03/22/2024 11:00 AM Provider Benton Rivas MD Department [facility] ) Diet: Low Fiber Addtl Attending Provider Instructions: Follow-up with your primary care physician Dr. Rivas on 03/22/2024 11:00 AM Follow-up with your colorectal surgeon as recommended. --Complete the antibiotic course Augmentin as prescribed. Seek immediate medical attention if your symptoms reoccur or worsen Please take all medications as instructed on discharge list below. Please call if you have any questions or problems. You can reach a [facility] hospitalist on duty at [facility] 24 hours a day by calling [phone] Pending Studies at Discharge: No Stand-Alone Forms: My [facility], Smoking Cessation Medications and DC Order Prescriptions: Continued mesalamine 1.2 gram Tablet,Delayed Release (Dr/Ec) 2.4 g PO HS ascorbic acid (vitamin C) [Vitamin C] 500 mg Tablet 500 mg PO DAILY dicyclomine 20 mg Tablet 20 mg PO TID PRN (Reason: Abdominal Pain) albuterol sulfate [ProAir HFA] 90 mcg/actuation Hfa Aerosol Inhaler 2 puff INHALATION QID PRN (Reason: Shortness Of Breath) mesalamine 1,000 mg Suppository 1 g KY HS PRN (Reason: Pain) omeprazole 20 mg Tablet,Delayed Release (Dr/Ec) 20 mg PO DAILY Rx Instructions: pt never took med amoxicillin-pot clavulanate 875-125 mg tablet 1 tab PO BID Qty: 16 0RF Probiotic 3 billion cell capsule 3,000 mmu cells PO DAILY 14 Days Qty: 14 0RF Rx Instructions: administer with a meal Discharge Orders: Discharge Order (Routine); Ordered 07/11/24 Ordered By: Silverio Masterson Admission Data Admit Date/Time: 03/13/24 10:45 Attending Provider: Silverio Masterson Admit Provider: Nancy Stevenson Primary Care Provider: Benton Rivas Other Providers: Trip Trivedi; Nancy Stevenson
== END 2024-03-16 15:30 | disposition home or self-care (01) | DRG 392 ==
LOC: ED 07:15 → SUATTDRO 10:45 → 3N 10:45